=== PATIENT | female | born 1950 | race African-American/Black ===

== ENCOUNTER 2016-08-22 12:18 | Inpatient (IN) | payer OTHER, MEDICARE ==
[~2016-08-22] VITALS: Ht 180.3 cm; Wt 100.5 kg
[2016-08-27] MEDS ORDERED: FURO20TA PO (12:09)
[2016-08-27] MEDS ORDERED: CARV3.125 PO (12:09)
[2016-08-27] MEDS ORDERED: ATOR20TA15 PO (12:09)
[2016-08-27] MEDS ORDERED: SACU1TAB PO (12:09)
[2016-08-27] MEDS ORDERED: SPIR25TA PO (12:09)
[2016-08-27] MEDS ORDERED: NOVONP2 SQ (13:37)
[2016-08-27] MEDS ORDERED: NOVORP2 SQ (13:37)
[2016-08-27] MEDS ORDERED: ASPI1TAB69 PO (13:38)
[2016-08-29] VITALS (16 sets, daily range): BP systolic 104–134; BP diastolic 72–83; PULSE 69–97; RESP 16–18; TEMP 97.6–98.4; O2SAT 93–97
[2016-08-29] MEDS ORDERED: INSULIN HUMAN REGULAR 1,000 UNITS/10 ML VIAL SQ PRN (06:15)
[2016-08-29] MEDS ORDERED: POVIDONE IODINE 5% (ANTISEPSIS KIT) 4 APPLICATIONS EACH NARE PRN (06:15)
[2016-08-29] MEDS ORDERED: CHLORHEXIDINE GLUCONATE 2 % 1 PACK (2 CLOTHS) TOPICAL PRN (06:15)
[2016-08-29] MEDS ORDERED: SODIUM CHLORID 0.9% 500 ML IV PRN (06:15)
[2016-08-29] MEDS ORDERED: LACTATED RINGER'S 1000 ML IV PRN (06:15)
[2016-08-29] MEDS ORDERED: METOPROLOL TARTRATE 25 MG TAB PO PRN (06:15)
[2016-08-29] MEDS ORDERED: SUGAMMADEX SODIUM 200 MG/2 ML VIAL IV PUSH ONE ×4 (07:07→08:07)
[2016-08-29] MEDS ORDERED: BUPIVACAINE LIPOSO PF 1.3% INJ 20 ML, DEXAMETHASONE INJ 4 MG, MORPHINE INJ 10 MG in SOD... P-ARTICULR SCH (07:15)
[2016-08-29] MEDS ORDERED: BUPIVACAINE LIPOSOME PF 1.3% 20 ML VIAL INFIL ONE (09:18)
[2016-08-29] MEDS ORDERED: ACETAMINOPHEN 325 MG TAB PO PRN (09:30)
[2016-08-29] MEDS ORDERED: Post-op Orders (for Pharmacy) MISC OTHER ONE (09:30)
[2016-08-29] MEDS ORDERED: ACETAMINOPHEN/HYDROcodone 325 MG/5 MG TAB PO PRN (09:30)
[2016-08-29] MEDS ORDERED: MAGNESIUM HYDROXIDE SUSP 30 ML CUP PO PRN (09:30)
[2016-08-29] MEDS ORDERED: RESP: ALBUTEROL 2.5 MG/3 ML NEB (PRN) NEB (09:30)
[2016-08-29] MEDS ORDERED: ONDANSETRON HCL 4 MG/2 ML VIAL IV PUSH PRN (09:30)
[2016-08-29] MEDS: KETOROLAC TROMETHAMINE 30 MG/ML (IVP) VIAL IV PUSH SCH ×3 (09:30→21:02)
[2016-08-29] MEDS ORDERED: SODIUM CHLORIDE 0.9% FLUSH 5 ML FLUSH IV FLUSH PRN (09:30)
[2016-08-29] MEDS: RESP: ALBUTEROL 2.5 MG/3 ML NEB (SCH) NEB ×3 (10:00→20:43)
[2016-08-29] MEDS ORDERED: *morphine SULFATE 8 MG/ML PERIprocedure ONLY ONE ×2 (10:24→10:55)
--- NOTE | 2016-08-29 10:33 | RADRPT ---
EXAM DATE/TIME: 08/29/2016 10:09 [facility] COMPARISON: No previous studies available for comparison. INDICATIONS : Post thoracotomy. MEDICAL HISTORY : None. SURGICAL HISTORY : Pacemaker. ENCOUNTER: Initial ACUITY: 1 day PAIN SCORE: Non-responsive. LOCATION: Bilateral chest FINDINGS: A single view of the chest demonstrates cardiomegaly with bilateral perihilar edema. Left-sided defib rillator with 2 intact leads. No pneumothorax. Osseous structures are intact. CONCLUSION: Cardiomegaly with bilateral perihilar edema. No pneumothorax. Jonathan Lua MD on August 29, 2016 at 10:28 Board Certified Radiologist. This report was verified electronically.
[2016-08-29] MEDS ORDERED: DO NOT ADM ANY ANTICOAGULANT DRUGS PRN (11:00)
[2016-08-29] MEDS ORDERED: fentaNYL CITRATE 250 MCG/5 ML AMP IV ONE (12:00)
--- NOTE | 2016-08-29 12:07 | PD.OP ---
cc: Irish Lau MD; Marko Aviles MD Operative Report Date of Surgery: August 29, 2016 Preoperative Diagnosis: Postoperative Diagnosis: Procedure: 1. Left Lateral Mini-Thoracotomy 2. Epicardial Left Ventricular Lead Placement 3. Removal of Coronary Sinus Lead 4. Removal and Replacement of BiVentricular Pacemaker-AICD Generator Device 5. Intercostal nerve Block. . Surgeon: Irish Lau Optician Apprentice(s): Josias Medrano Operation and Findings: PREOPERATIVE DIAGNOSIS 1. Cardiomyopathy 2. CHF 3. Diabetes Mellitus 4. Malfunctioning Coronary Sinus Lead 5. Severe Left Ventricular Dysfunction POSTOPERATIVE DIAGNOSIS same PROCEDURES 1. Left Lateral Mini-Thoracotomy 2. Epicardial Left Ventricular Lead Placement 3. Removal of Coronary Sinus Lead 4. Removal and Replacement of BiVentricular Pacemaker-AICD Generator Device 5. Intercostal nerve Block. SURGEON Irish Lau MD CLOTH BOIL OFF MACHINE OPERATOR BRITTANY Bartholomew ANESTHESIA General Double-lumen endotracheal. STUDENT AFFAIRS DEAN LUZ MARIA Carias MD OPERATIVE TIME Please see record. COMPLICATIONS None. INDICATION FOR PROCEDURE The patient is a 66 yo with cardiomyopathy and recurrent CHF who is being brought to the operating room for epicardial left ventricular lead placement following percutaneous CS lead placement with diaphragmatic pacing. DESCRIPTION OF PROCEDURE The patient was brought to the operating suite and placed in supine position with the left chest slightly elevated. Following satisfactory induction of general endotracheal anesthesia, the patient was prepped and draped in the usual sterile fashion. A mini-thoracotomy (5 cm) was then performed in the 4th ICS anterior axillary line and carried down to the pleura. With gentle sharp and blunt dissection, the left pleural space was entered. The pericardium was identified. A pericardiotomy was performed anterior to the phrenic nerve, with care being taken to avoid direct or traction injury to the neurovascular bundle , and viable left ventricular muscle identified. A [employer] LV screw in lead was placed on the ventricular surface. Serial # [id number], REF # [id number]. Parameters measured were excellent with threshold of 0.6 V at 0.5 ms and impedance of 405 ohms. The previously closed infraclavicular incision was opened and the pocket irrigated with antibiotic solution. The malfunctioning coronary sinus lead was easily extracted with gentle traction and removed. The RA and RV leads were disconnected from the generator device it was replaced with a new device Serial # [id number]. The lead was tunneled and connected to the generator device as were the RA & RV leads. A #24-Beninese Aníbal drain was placed in the pleural space. Intercostal nerve block was performed at the level of the incision and 2 rib spaces above and below using Exparel solution. The intercostal space was reapproximated with a single #2 Vicryl stitch. Wounds were closed with 2-0, 3-0, and 4-0 Monocryl. The patient tolerated the procedure well and postoperatively went to recovery in stable condition. Irish Lau MD August 29, 2016 12:07
[2016-08-29] MEDS ORDERED: PHENYLEPH/NS 1000 MCG/10 ML SYR IV ONE (13:22)
[2016-08-29] MEDS ORDERED: PROPOFOL 200 MG/20 ML AMP IV ONE (13:22)
[2016-08-29] MEDS ORDERED: ACETAMINOPHEN 1000 MG/100 ML VIAL IV ONE (13:22)
[2016-08-29] MEDS ORDERED: LACTATED RINGER'S 1000 ML INJ 1,000 ML IV ONE (13:23)
[2016-08-29] MEDS ORDERED: ONDANSETRON HCL 4 MG/2 ML VIAL IV PUSH ONE (13:23)
[2016-08-29] MEDS: ACETAMINOPHEN 1000 MG/100 ML VIAL IV SCH ×2 (15:30→20:38)
[2016-08-29] MEDS ORDERED: ceFAZolin 1 GM PREMIX 50 ML IV SCH (17:00)
[2016-08-29] MEDS: ceFAZolin 1,000 MG/NS 100 ML IV SCH ×2 (17:51)
[2016-08-29] MEDS ORDERED: GLUCAGON 1 MG/ML VIAL OTHER PRN (18:00)
[2016-08-29] MEDS ORDERED: DEXTROSE 50% IN WATER 50 ML VIAL(D50) IV PUSH PRN (18:00)
[2016-08-29] MEDS: CARVEDILOL 3.125 MG TAB PO SCH (20:42)
[2016-08-29] MEDS: ATORVASTATIN 20 MG TAB PO SCH (20:42)
[2016-08-29] MEDS: PANTOPRAZOLE SOD 40 MG DELAYED RELEASE TAB PO SCH (20:43)
[2016-08-29] MEDS: SODIUM CHLORIDE 0.9% FLUSH 5 ML FLUSH IV FLUSH SCH (20:43)
[2016-08-29] MEDS: SACUBITRIL/VALSARTAN 24 MG-26 MG TAB PO SCH (21:20)
[2016-08-29] MEDS: DOCUSATE CALCIUM 240 MG CAP PO SCH (21:20)
[2016-08-29] MEDS: LOW DOSE INSULIN NOVOLOG SUPPLEMENTAL SCALE SQ SCH (21:24)
[2016-08-30] VITALS (33 sets, daily range): BP systolic 78–120; BP diastolic 42–71; PULSE 56–94; RESP 14–18; TEMP 97.8–98.2; O2SAT 92–96
[2016-08-30] MEDS: ceFAZolin 1,000 MG/NS 100 ML IV SCH ×4 (02:32→09:17)
[2016-08-30] MEDS: ACETAMINOPHEN 1000 MG/100 ML VIAL IV SCH (03:11)
[2016-08-30] MEDS: KETOROLAC TROMETHAMINE 30 MG/ML (IVP) VIAL IV PUSH SCH (03:11)
[2016-08-30] MEDS: RESP: ALBUTEROL 2.5 MG/3 ML NEB (SCH) NEB ×4 (04:42→21:48)
[2016-08-30] MEDS: LOW DOSE INSULIN NOVOLOG SUPPLEMENTAL SCALE SQ SCH ×4 (05:47→23:08)
[2016-08-30] MEDS: ACETAMINOPHEN/HYDROcodone 325 MG/5 MG TAB PO PRN ×3 (07:37→23:05)
[2016-08-30] MEDS: SODIUM CHLORIDE 0.9% FLUSH 5 ML FLUSH IV FLUSH SCH ×2 (09:00→21:00)
[2016-08-30] MEDS ORDERED: FUROSEMIDE 20 MG TAB PO SCH (09:00)
[2016-08-30] MEDS: SPIRONOLACTONE 25 MG TAB PO SCH (09:16)
[2016-08-30] MEDS: CARVEDILOL 3.125 MG TAB PO SCH ×2 (09:16→21:00)
[2016-08-30] MEDS: SACUBITRIL/VALSARTAN 24 MG-26 MG TAB PO SCH ×2 (09:16→21:00)
[2016-08-30] MEDS: ASPIRIN EC 81 MG TABEC PO SCH (09:16)
--- NOTE | 2016-08-30 15:14 | RADRPT ---
EXAM DATE/TIME: 08/30/2016 11:42 [facility] COMPARISON: CHEST SINGLE AP, August 29, 2016, 10:09. INDICATIONS : Chest tube removal. MEDICAL HISTORY : Myocardial infarction. SURGICAL HISTORY : Pacemaker. Thoracotomy ENCOUNTER: Subsequent ACUITY: 2 days PAIN SCORE: 0/10 LOCATION: Bilateral chest FINDINGS: Portable AP view of the chest demonstrates stable enlargement of the cardiac silhouette. Left chest w all cardiac pacing device/AICD remains present. Left chest tube has been removed. No pneumothorax is visualized. There is persistent retrocardiac opacity and mild streaky opacity at the right base. CONCLUSION: 1. Left chest tube has been removed. No pneumothorax is visualized. 2. Stable left basilar opacity. Alfred Coleman MD on August 30, 2016 at 15:10 Board Certified Radiologist. This report was verified electronically.
--- NOTE | 2016-08-30 15:27 | PD.CAR.PN ---
CVT Progress Note Subjective/Hospital Course: 66/ female hx of 1. Cardiomyopathy , CHF, Diabetes Mellitus, Malfunctioning Coronary Sinus Lead, Severe Left Ventricular Dysfunction surgery : Left Lateral Mini-Thoracotomy, Epicardial Left Ventricular Lead Placement, Removal of Coronary Sinus Lead, Removal and Replacement of BiVentricular Pacemaker-AICD Generator Device 08/29 08/30 chest tube removed without difficulty pt has low sat mid 80's when off 02 + walk test, will need to be dc on Home 02 eval labs today Objective: GENERAL: SKIN: Warm and dry.incision intact to left upper chest wall x 2 HEAD: Normocephalic. EYES: No scleral icterus. No injection or drainage. NECK: Supple, trachea midline. No JVD or lymphadenopathy. CARDIOVASCULAR: Regular rate and rhythm without murmurs, gallops, or rubs. pacer left upper chest wall RESPIRATORY: Breath sounds equal bilaterally. No accessory muscle use. GASTROINTESTINAL: Abdomen soft, non-tender, nondistended. MUSCULOSKELETAL: No cyanosis, or edema. BACK: Nontender without obvious deformity. No CVA tenderness. Vital Signs Date Time Temp Pulse Resp B/P Pulse Ox O2 Delivery O2 Flow Rate FiO2 08/30/16 14:36 68 08/30/16 13:01 81 08/30/16 12:56 83 08/30/16 12:52 82 16 93/43 93 08/30/16 11:48 93 Nasal Cannula 3.00 08/30/16 11:46 80 14 80/47 93 08/30/16 11:09 72 08/30/16 11:04 97.9 66 14 78/52 92 08/30/16 10:52 74 08/30/16 10:00 94 08/30/16 09:14 14 08/30/16 09:00 80 08/30/16 08:36 92 Nasal Cannula 2.00 08/30/16 08:00 80 08/30/16 07:44 98.2 79 14 120/69 96 08/30/16 07:15 97 Nasal Cannula 3.00 08/30/16 07:00 85 08/30/16 07:00 14 08/30/16 06:29 91 08/30/16 05:00 78 08/30/16 04:45 94 Nasal Cannula 2.00 08/30/16 04:00 90 08/30/16 03:20 94 Nasal Cannula 3.00 08/30/16 03:20 76 08/30/16 03:20 98.0 56 18 111/71 94 08/30/16 02:11 79 08/30/16 01:00 86 08/30/16 00:00 74 08/29/16 23:20 94 Nasal Cannula 3.00 08/29/16 23:20 98.0 69 16 110/75 94 08/29/16 23:00 72 08/29/16 22:00 74 08/29/16 21:00 82 08/29/16 20:43 96 Nasal Cannula 2.00 08/29/16 20:15 90 08/29/16 19:20 98.3 85 18 109/72 95 08/29/16 19:20 79 08/29/16 19:20 95 Nasal Cannula 3.00 08/29/16 18:00 76 08/29/16 17:00 90 08/29/16 16:05 93 Nasal Cannula 2.00 08/29/16 16:00 80 08/29/16 15:41 95 Nasal Cannula 2.00 08/29/16 15:40 97.6 85 18 112/79 95 Telemetry: v paced (1) CHF (congestive heart failure), NYHA class III Plan: on entresto, spironolactone, lasix (2) Hypoxemia Plan: will need home 02 (3) s/p epicardial lead placement Plan: chest tube dc without difficulty 02 sat marginal / did not pass home walk test will check labs, BP low this am now resolved eval for further diuretics Nicole Avendaño August 30, 2016 15:27
[2016-08-30] MEDS ORDERED: OXYGENTANK NAS.CANULA (15:28)
--- NOTE | 2016-08-30 15:34 | HHI.FF ---
Face to Face Verification Diagnosis: (1) CHF (congestive heart failure), NYHA class III (2) s/p epicardial lead placement (3) Hypoxemia Home Health Nursing Order: Signs/symptoms of disease process Oxygen administration education Wound care and dressing changes Nursing assessment with vital signs Instructions: Incentive spirometry Q1 hr x 10, while awake, also use acapella device hourly whole awake chest wall Precautions: NO pushing or pulling, ( pt must use chest pillow to support chest with all activities and with coughing Daily incision care: ok to shower daily, no tub bath. Wash all incisions with liquid dial soap, clean wash cloth to each site, rinse and pat dry. Observe for any signs of infection, such as drainage which is dark yellow, gar, green or foul smelling. Immediately report to the surgeon any drainage from the chest incision, or legs, and for any abnormal drainage from the chest tube sites. Notify surgeon if any temp >101.5 degrees F. When specialty dressing removed/ or if you do not have one, continue to shower daily as above, then rinse and pat incision dry and paint with betadine daily x 5 days. Allow steri strips to fall off if you have any. Avoid lotions, creams, salves, oils, etc. for the first month F/U appointment: as per MO instructions: PCP in 2 weeks, CV surgeon 2 weeks, Practicing Dermatologist 3-4 weeks For any questions regarding incisions/ dressing / meds / post op care or above Symptoms, Saturday 8am-5pm Heart & Vascular Surgery Office ( Dr. Lau & Dr. Shipman), After Hours / Nights (5pm -8am) Weekends and Holidays Please call [facility]) Charge Nurse I have seen patient Kaylee Shah on 08/30/16. My clinical findings support the need for the requested home health care services because: Patient has SOB I certify that my clinical findings support that this patient is homebound because: Post-op weakness (home 02 to keep sat > 92%) Nicole Avendaño August 30, 2016 15:34
[2016-08-30 17:20] LABS: HEMATOCRIT 36.7 % (35.0-46.0); MEAN CORPUSCULAR HEMOGLOBIN 26.9 PG (27.0-34.0); MEAN CORPUSCULAR HGB CONC 31.3 % (32.0-36.0); PLATELET COUNT 130 TH/MM3 (150-450); RED BLOOD COUNT 4.26 MIL/MM3 (4.00-5.30); RED CELL DISTRIBUTION WIDTH 16.9 % (11.6-17.2); REVIEW FLAG FINAL; WHITE BLOOD COUNT 8.8 TH/MM3 (4.0-11.0)
[2016-08-30 17:36] LABS: BICARBONATE 28.7 MEQ/L (21.0-32.0); POTASSIUM 4.7 MEQ/L (3.5-5.1)
[2016-08-30] MEDS ORDERED: SODIUM CHLOR 0.9% 250 ML INJ 250 ML IV ONE (20:45)
[2016-08-30] MEDS: DOCUSATE CALCIUM 240 MG CAP PO SCH (23:05)
[2016-08-30] MEDS: ATORVASTATIN 20 MG TAB PO SCH (23:05)
[2016-08-30] MEDS: PANTOPRAZOLE SOD 40 MG DELAYED RELEASE TAB PO SCH (23:06)
[2016-08-31] VITALS (25 sets, daily range): BP systolic 84–136; BP diastolic 52–100; PULSE 63–95; RESP 16–20; TEMP 97.4–98.5; O2SAT 93–97
[2016-08-31] MEDS: RESP: ALBUTEROL 2.5 MG/3 ML NEB (SCH) NEB ×4 (02:55→21:26)
[2016-08-31] MEDS: LOW DOSE INSULIN NOVOLOG SUPPLEMENTAL SCALE SQ SCH ×4 (06:16→21:00)
[2016-08-31] MEDS: ACETAMINOPHEN/HYDROcodone 325 MG/5 MG TAB PO PRN ×3 (06:22→16:24)
[2016-08-31 06:34] LABS: BASOPHIL % 0.5 % (0.0-2.0); EOSINOPHIL % 0.5 % (0.0-4.0); HEMATOCRIT 33.9 % (35.0-46.0); HEMO FLAGS DIFF FINAL; LYMPHOCYTE # 0.7 TH/MM3 (1.0-4.8); MEAN CELL VOLUME 84.6 FL (80.0-100.0); MEAN CORPUSCULAR HEMOGLOBIN 27.8 PG (27.0-34.0); MEAN CORPUSCULAR HGB CONC 32.9 % (32.0-36.0); MONO % 13.8 % (0.0-8.0); NEUT % 74.2 % (16.0-70.0); PLATELET COUNT 126 TH/MM3 (150-450); RED BLOOD COUNT 4.01 MIL/MM3 (4.00-5.30); RED CELL DISTRIBUTION WIDTH 17.1 % (11.6-17.2); WHITE BLOOD COUNT 6.7 TH/MM3 (4.0-11.0)
--- NOTE | 2016-08-31 07:16 | RADRPT ---
EXAM DATE/TIME: 08/31/2016 05:20 [facility] COMPARISON: CHEST SINGLE AP, August 30, 2016, 11:42. INDICATIONS : Shortness of breath. MEDICAL HISTORY : Myocardial infarction. SURGICAL HISTORY : Pacemaker. Thoracotomy. ENCOUNTER: Subsequent ACUITY: 3 days PAIN SCORE: Non-responsive. LOCATION: chest FINDINGS: Right base consolidation and small effusion worsening. Mild consolidation probably developing at the left lung base as well. I don't see a pneumothorax. Mild to moderate cardiomegaly is unchanged. Cardiac pacer/defibrillator again noted. CONCLUSION: Worsening bibasilar consolidation and effusions, could be related to failure. Alfred Crain MD on August 31, 2016 at 7:14 Board Certified Radiologist. This report was verified electronically.
[2016-08-31 07:35] LABS: BICARBONATE 26.8 MEQ/L (21.0-32.0); POTASSIUM 4.8 MEQ/L (3.5-5.1)
[2016-08-31] MEDS: SODIUM CHLORIDE 0.9% FLUSH 5 ML FLUSH IV FLUSH SCH ×2 (09:00→21:00)
[2016-08-31] MEDS: ASPIRIN EC 81 MG TABEC PO SCH (09:14)
--- NOTE | 2016-08-31 11:22 | ECHLIM ---
Study Study Date:08/31/2016 STUDY CONCLUSIONS SUMMARY - Procedure narrative: Transthoracic echocardiography. Image quality was poor. Scanning was performed from the parasternal, apical, and subcostal acoustic windows. - Left ventricle: The cavity size was moderately dilated. Wall thickness was normal. Systolic function was severely reduced. The estimated ejection fraction was in the range of 20% to 25%. Diffuse hypokinesis. - Left atrium: The atrium was mildly dilated. - Right ventricle: Poorly visualized. - Right atrium: The atrium was mildly dilated. Pacer wire or catheter noted in right atrium. - Atrial septum: A patent foramen ovale cannot be excluded. - Tricuspid valve: Mild regurgitation. - Pulmonary arteries: PA peak pressure: 37mm Hg (S). If LV function is below 40, please consider prescribing an ACEI or ARB or document rationale for non-use. PROCEDURE DATA STUDY STATUS: Elective. Procedure: Transthoracic echocardiography. Image quality was poor. Scanning was performed from the parasternal, apical, and subcostal acoustic windows. Study completion: The patient tolerated the procedure well. Transthoracic echocardiography. M-mode, complete 2D, complete spectral Doppler, and color Doppler. Height: Height: 71in. Weight: Weight: 250.5lb. Body mass index: BMI: 35kg/m^2. Body surface area: BSA: 2.32m^2. Patient status: Inpatient. CARDIAC ANATOMY LEFT VENTRICLE: The cavity size was moderately dilated. Wall thickness was normal. Systolic function was severely reduced. The estimated ejection fraction was in the range of 20% to 25%. Diffuse hypokinesis. AORTIC VALVE: Trileaflet; normal thickness leaflets. Doppler: Transvalvular velocity was within the normal range. There was no stenosis. No regurgitation. AORTA: Aortic root: The aortic root was normal in size. MITRAL VALVE: Structurally normal valve. Doppler: Transvalvular velocity was within the normal range. There was no evidence for stenosis. No regurgitation. LEFT ATRIUM: The atrium was mildly dilated. ATRIAL SEPTUM: A patent foramen ovale cannot be excluded. RIGHT VENTRICLE: Poorly visualized. PULMONIC VALVE: Doppler: Transvalvular velocity was within the normal range. There was no evidence for stenosis. No regurgitation. TRICUSPID VALVE: Structurally normal valve. Doppler: Transvalvular velocity was within the normal range. Mild regurgitation. PULMONARY ARTERY: The main pulmonary artery was normal-sized. Systolic pressure was within the normal range. RIGHT ATRIUM: The atrium was mildly dilated. Pacer wire or catheter noted in right atrium. PERICARDIUM: There was no pericardial effusion. SYSTEMIC VEINS: Inferior vena cava: The vessel was normal in size. Patient weight: 250.5lb _Ejection fraction:_ 65-75% _Fractional shortening:_ 32% up to 5Kg 5-11.5Kg 11.6-22.9Kg 23-45Kg 45-57Kg Aortic Root 7-13 <17 13-22 17-27 17-27 LA diam 6-13 <23 24-38 33-47 37-40 RVID 10-17 7-15 7-15 7-18 8-17 LVIDd 12-22 <32 24-38 33-47 37-40 LVPW 2-4 3-6 5-7 6-8 7-8 IVS 2-4 3-6 5-7 6-8 7-8 DOPPLER MEASUREMENTS ADULT NORMAL Main pulmonary artery Pressure, S *37 mm Hg =30 Tricuspid valve Regurgitant peak velocity 258 cm/s Peak RV-RA gradient, S 27 mm Hg Maximal regurgitant velocity 258 cm/s Systemic veins Estimated CVP 10 mm Hg Right ventricle RV pressure, S *37 mm Hg <30 LEGEND: Mean values are shown as u=mean value. Asterisk (*) cifuentes values outside specified normal range. Prepared and signed by Phillip Rondon [id number]
--- NOTE | 2016-08-31 12:09 | PD.CAR.PN ---
CVT Progress Note Subjective/Hospital Course: 66/ female hx of 1. Cardiomyopathy , CHF, Diabetes Mellitus, Malfunctioning Coronary Sinus Lead, Severe Left Ventricular Dysfunction surgery : Left Lateral Mini-Thoracotomy, Epicardial Left Ventricular Lead Placement, Removal of Coronary Sinus Lead, Removal and Replacement of BiVentricular Pacemaker-AICD Generator Device 08/29 08/30 chest tube removed without difficulty pt has low sat mid 80's when off 02 + walk test, will need to be dc on Home 02 eval labs today 08/31 pt had episode of hypotension again this am all meds held , bolused with 250cc/ NS worsening renal indices / will need nephro consult also re-consult Dr Aviles CXR and BMP noted, volume overload / HX CHF needs aggressive pulm toileting / diuresis ( will leave to nephro/ non - oliguric ) Objective: GENERAL: SKIN: Warm and dry. Bi V ICD left upper chest wall insitu, incision intact left upper chest wall and below left breast HEAD: Normocephalic. EYES: No scleral icterus. No injection or drainage. NECK: Supple, trachea midline. No JVD or lymphadenopathy. CARDIOVASCULAR: Regular rate and rhythm without murmurs, gallops, or rubs. + 1 lower ext edema RESPIRATORY: bibasilar crackles , R>L No accessory muscle use. GASTROINTESTINAL: Abdomen soft, non-tender, nondistended. MUSCULOSKELETAL: No cyanosis, BACK: Nontender without obvious deformity. No CVA tenderness. Vital Signs Date Time Temp Pulse Resp B/P Pulse Ox O2 Delivery O2 Flow Rate FiO2 08/31/16 11:11 98.4 84 18 92/62 95 08/31/16 11:11 95 Nasal Cannula 2.00 08/31/16 09:44 95 Nasal Cannula 2.00 08/31/16 08:48 94 Nasal Cannula 2.00 08/31/16 08:48 98.3 84 18 105/60 94 08/31/16 06:00 72 08/31/16 05:00 90/64 08/31/16 05:00 86 08/31/16 04:00 77 08/31/16 03:30 97 Nasal Cannula 2.00 08/31/16 03:30 98.5 83 16 84/52 93 08/31/16 03:00 73 08/31/16 02:55 93 Nasal Cannula 2.00 08/31/16 02:00 67 08/31/16 01:00 63 08/31/16 00:00 74 08/30/16 23:00 81 08/30/16 23:00 97.8 82 18 88/52 93 08/30/16 23:00 93 Nasal Cannula 2.00 08/30/16 22:00 76 08/30/16 21:51 92 Nasal Cannula 2.00 08/30/16 21:00 74 08/30/16 20:00 80 08/30/16 19:30 95 Nasal Cannula 2.00 08/30/16 19:30 98.2 85 18 92/60 95 08/30/16 19:00 81 08/30/16 18:43 78 08/30/16 18:42 72 08/30/16 17:45 16 08/30/16 16:13 78 08/30/16 16:13 98.0 78 14 94/60 94 08/30/16 15:15 93 Nasal Cannula 2.00 08/30/16 15:15 63 08/30/16 14:36 68 08/30/16 13:01 81 08/30/16 12:56 83 08/30/16 12:52 82 16 93/43 93 Labs: Laboratory Tests Test 08/31/16 06:21 White Blood Count 6.7 TH/MM3 (4.0-11.0) Red Blood Count 4.01 MIL/MM3 (4.00-5.30) Hemoglobin 11.2 GM/DL (11.6-15.3) Hematocrit 33.9 % (35.0-46.0) Mean Corpuscular Volume 84.6 FL (80.0-100.0) Mean Corpuscular Hemoglobin 27.8 PG (27.0-34.0) Mean Corpuscular Hemoglobin 32.9 % Concent (32.0-36.0) Red Cell Distribution Width 17.1 % (11.6-17.2) Platelet Count 126 TH/MM3 (150-450) Mean Platelet Volume 9.1 FL (7.0-11.0) Neutrophils (%) (Auto) 74.2 % (16.0-70.0) Lymphocytes (%) (Auto) 11.0 % (9.0-44.0) Monocytes (%) (Auto) 13.8 % (0.0-8.0) Eosinophils (%) (Auto) 0.5 % (0.0-4.0) Basophils (%) (Auto) 0.5 % (0.0-2.0) Neutrophils # (Auto) 5.0 TH/MM3 (1.8-7.7) Lymphocytes # (Auto) 0.7 TH/MM3 (1.0-4.8) Monocytes # (Auto) 0.9 TH/MM3 (0-0.9) Eosinophils # (Auto) 0.0 TH/MM3 (0-0.4) Basophils # (Auto) 0.0 TH/MM3 (0-0.2) CBC Comment DIFF FINAL Differential Comment Sodium Level 138 MEQ/L (136-145) Potassium Level 4.8 MEQ/L (3.5-5.1) Chloride Level 104 MEQ/L (98-107) Carbon Dioxide Level 26.8 MEQ/L (21.0-32.0) Anion Gap 7 MEQ/L (5-15) Blood Urea Nitrogen 40 MG/DL (7-18) Creatinine 2.89 MG/DL (0.50-1.00) Estimat Glomerular Filtration 20 ML/MIN (>89) Rate Random Glucose 130 MG/DL (74-106) Calcium Level 8.3 MG/DL (8.5-10.1) Result Diagram: 08/31/1662008/31/16620 (1) CHF (congestive heart failure), NYHA class III Plan: all meds held 2/2 hypotension s/p fluid bolus on entresto, spironolactone, lasix (2) Hypoxemia Plan: will need home 02 add ezpap acapella (3) s/p epicardial lead placement Plan: chest tube dc without difficulty 02 sat marginal / did not pass home walk test will recheck labs, BP low this am / improved after fluid bolus 250cc/ will need to caution further fluid with low EF 25% (4) Acute kidney injury Plan: consult placed with nephrology hold BP Nicole Sanchez August 31, 2016 12:09
[2016-08-31] MEDS ORDERED: BUMETANIDE INJ 100 ML IV SCH (12:45)
--- NOTE | 2016-08-31 12:47 | RADRPT ---
EXAM DATE/TIME: 08/31/2016 12:10 [facility] COMPARISON: CHEST SINGLE AP, August 31, 2016, 5:20. INDICATIONS : No chest complaints. Follow up on consolidation. MEDICAL HISTORY : Hypertension. Myocardial infarction. SURGICAL HISTORY : Pacemaker. ENCOUNTER: Subsequent ACUITY: 2 days PAIN SCORE: 0/10 LOCATION: Bilateral chest FINDINGS: A single view of the chest demonstrates cardiomegaly with bibasilar densities and small pleural effus ions. Left-sided defibrillator unchanged. Osseous structures are intact. CONCLUSION: Cardiomegaly with improving bibasilar densities. Jonathan Lua MD on August 31, 2016 at 12:45 Board Certified Radiologist. This report was verified electronically.
--- NOTE | 2016-08-31 15:25 | PD.CONS ---
[facility] Service Nephrology Consult Requested By Kateryna Reason for Consult Acute Renal Failure Primary Care Physician Crystal Calhoun M.D. History of Present Illness This is a 66 y/o AAF patient who was admitted on 08/29 for replacement of her AICD (Left Lateral Mini-Thoracotomy, Epicardial Left Ventricular Lead Placement , Removal of Coronary Sinus Lead, Removal and Replacement of Bi-Ventricular Pacemaker-AICD Generator Device). PMH of HTN, DM II, CHF with EF of 20-25%. Postoperatively her creatinine was 2.6, that increased to 2.89 today. Preoperatively her creatinine was 1.24 on 08/28. She denies history of renal impairment or seeing a wool classer in the past. There is no UA available for analysis, but her potassium is normal. There are no recent labs for comparison, but in 2009 her creatinine measured 1.02. Overnight last night (08/30) she became hypotensive with readings recorded at 70/50. She is non oliguric without a cui. We were asked to consult on this patient for management of her renal dysfunction. She was on Entresto, Lasix, and Aldactone, all of which have been held. She is not in distress, no edema is observed, and she is a full code. Of note she was given 3 doses of Toradol on 08/30. (Cyn Denton) Review of Systems Constitutional: COMPLAINS OF: Fatigue Respiratory: DENIES: Shortness of breath Cardiovascular: DENIES: Chest pain, Lower Extremity Edema Gastrointestinal: DENIES: Abdominal pain (Cyn Denton) Past Family Social History Allergies: Coded Allergies: No Known Allergies (Verified , 08/27/16) Past Medical History DM II HTN CHF, EF 20-25% systolic dysfunction Cardiomyopathy Past Surgical History cesarian Left Lateral Mini-Thoracotomy, Epicardial Left Ventricular Lead Placement, Removal of Coronary Sinus Lead, Removal and Replacement of BiVentricular Pacemaker-AICD Generator Device on 08/29 Reported Medications she is unable to list medications Active Ordered Medications Current Medications Medications (Trade) Dose Ordered Sig/Ava Route Start Time Stop Time Status Last Admin (NS Flush) 2 ml BID IV FLUSH 08/29/16 21:00 08/31/16 09:00 (NS Flush) 2 ml UNSCH PRN IV FLUSH 08/29/16 09:30 (Protonix) 40 mg HS PO 08/29/16 21:00 08/30/16 23:06 (Zofran Inj) 4 mg Q6H PRN IV PUSH 08/29/16 09:30 (Surfak) 240 mg HS PO 08/29/16 21:00 08/30/16 23:05 (Milk Of Magnesia Liq) 30 ml DAILY PRN PO 08/29/16 09:30 (Tylenol) 650 mg Q4H PRN PO 08/29/16 09:30 ([place] 5-325 Mg) 1 tab Q3H PRN PO 08/29/16 09:30 08/31/16 09:16 (Ecotrin Ec) 81 mg DAILY PO 08/30/16 09:00 08/31/16 09:14 (Lipitor) 20 mg HS PO 08/29/16 21:00 08/30/16 23:05 (Coreg) 3.125 mg BID PO 08/29/16 21:00 Hold 08/30/16 09:16 (Lasix) 20 mg DAILY PO 08/30/16 09:00 Hold 08/30/16 09:16 (Aldactone) 25 mg DAILY PO 08/30/16 09:00 Hold 08/30/16 09:16 (Entresto 24-26 Mg) 1 tab BID PO 08/29/16 21:00 Hold 08/30/16 09:16 (D50w (Vial) Inj) 25 ml UNSCH PRN IV PUSH 08/29/16 18:00 (Glucagon Inj) 1 mg UNSCH PRN OTHER 08/29/16 18:00 Family History No hx of renal disorders all of her sons have DM II Social History quit smoking 3 months ago no ETOH use single, lives alone functionally independent unemployed full code (Cyn Denton) Physical Exam Vital Signs Vital Signs Date Time Temp Pulse Resp B/P Pulse Ox O2 Delivery O2 Flow Rate FiO2 08/31/16 13:00 79 08/31/16 12:00 80 08/31/16 11:11 98.4 84 18 92/62 95 08/31/16 11:11 95 Nasal Cannula 2.00 08/31/16 11:00 77 08/31/16 10:00 82 08/31/16 09:44 95 Nasal Cannula 2.00 08/31/16 09:00 88 08/31/16 08:48 94 Nasal Cannula 2.00 08/31/16 08:48 98.3 84 18 105/60 94 08/31/16 08:00 68 08/31/16 07:00 70 08/31/16 06:00 72 08/31/16 05:00 90/64 08/31/16 05:00 86 08/31/16 04:00 77 08/31/16 03:30 97 Nasal Cannula 2.00 08/31/16 03:30 98.5 83 16 84/52 93 08/31/16 03:00 73 08/31/16 02:55 93 Nasal Cannula 2.00 08/31/16 02:00 67 08/31/16 01:00 63 08/31/16 00:00 74 08/30/16 23:00 81 08/30/16 23:00 97.8 82 18 88/52 93 08/30/16 23:00 93 Nasal Cannula 2.00 08/30/16 22:00 76 08/30/16 21:51 92 Nasal Cannula 2.00 08/30/16 21:00 74 08/30/16 20:00 80 08/30/16 19:30 95 Nasal Cannula 2.00 08/30/16 19:30 98.2 85 18 92/60 95 08/30/16 19:00 81 08/30/16 18:43 78 08/30/16 18:42 72 08/30/16 17:45 16 08/30/16 16:13 78 08/30/16 16:13 98.0 78 14 94/60 94 Physical Exam Elderly AAF who appears younger than stated age, awake/alert and oriented without neuro deficit S1/S2, regular rate, no rubs lungs: diminished in bases, trace scattered rales; bandage left lower rib border abdomen: obese, soft, non tender Ext: no edema no CVA tenderness Laboratory Laboratory Tests Test 08/30/16 08/31/16 17:10 06:21 White Blood Count 8.8 6.7 Red Blood Count 4.26 4.01 Hemoglobin 11.5 11.2 Hematocrit 36.7 33.9 Mean Corpuscular Volume 86.0 84.6 Mean Corpuscular Hemoglobin 26.9 27.8 Mean Corpuscular Hemoglobin 31.3 32.9 Concent Red Cell Distribution Width 16.9 17.1 Platelet Count 130 126 Mean Platelet Volume 8.9 9.1 Sodium Level 137 138 Potassium Level 4.7 4.8 Chloride Level 102 104 Carbon Dioxide Level 28.7 26.8 Anion Gap 6 7 Blood Urea Nitrogen 34 40 Creatinine 2.62 2.89 Estimat Glomerular Filtration 22 20 Rate Random Glucose 174 130 Calcium Level 8.6 8.3 B-Type Natriuretic Peptide 919 Neutrophils (%) (Auto) 74.2 Lymphocytes (%) (Auto) 11.0 Monocytes (%) (Auto) 13.8 Eosinophils (%) (Auto) 0.5 Basophils (%) (Auto) 0.5 Neutrophils # (Auto) 5.0 Lymphocytes # (Auto) 0.7 Monocytes # (Auto) 0.9 Eosinophils # (Auto) 0.0 Basophils # (Auto) 0.0 CBC Comment DIFF FINAL Differential Comment Date/Time Procedure Status Source Growth 08/29/16 08:52 Gram Stain - Final Resulted Wound Other 08/29/16 08:52 Wound Culture - Preliminary Resulted Wound Other NO GROWTH IN 48 HOURS. (Cyn Denton) Result Diagram: 08/31/16 0621 08/31/16 0621 Imaging Last 72 hours Impressions Chest X-Ray 08/31/16 0600 Signed Impressions: Service Date/Time: Wednesday, August 31, 2016 05:20 - CONCLUSION: Worsening bibasilar consolidation and effusions, could be related to failure. Alfred Crain MD Chest X-Ray 08/31/16 0000 Signed Impressions: Service Date/Time: Wednesday, August 31, 2016 12:10 - CONCLUSION: Cardiomegaly with improving bibasilar densities. Jonathan Lua MD Chest X-Ray 08/30/16 1200 Signed Impressions: Service Date/Time: August 11:42 - CONCLUSION: 1. Left chest tube has been removed. No pneumothorax is visualized. 2. Stable left basilar opacity. Alfred Coleman MD Chest X-Ray 08/29/16 0000 Signed Impressions: Service Date/Time: Monday, August 29, 2016 10:09 - CONCLUSION: Cardiomegaly with bilateral perihilar edema. No pneumothorax. Jonathan Lua MD (Cyn Denton) Assessment and Plan Problem List: (1) Acute kidney injury Plan: In 2009 her creatinine was 1.02; Pre operatively her creatinine was 1.24 , GFR 52 (CKD 3) May have underlying CKD JYOTI thought to be due to hypotension and decreased renal perfusion, may have progressed to ATN no acute electrolyte issues at this time we agree with holding Entresto and diuretics follow renal function, monitor urine production she was given IVF for hypotension, but BP has improved, maintain adequate MAP hold antihypertensives avoid excess IVF administration obtain UA for analysis of protein avoid nephrotoxic medications, she was given toradol x 3 doses repeat labs in the morning (2) CHF (congestive heart failure), NYHA class III Plan: EF 20-25% s/p AICD replacement monitor fluid volume status diuretics are on hold, cardiology is following (3) s/p epicardial lead placement Plan: cardiology is managing post operatively chest tubes have been removed (4) DM (diabetes mellitus) Plan: insulin as needed (Cyn Denton) Assessment and Plan patient was seen and examined. Patient has developed postoperative JYOTI, likely due to hypotension, renal hypoperfusion, may have developed ATN. Agree with stopping Entresto and antihypertensives. Monitor. Avoid nephrotoxic agents. Obtain UA, renal US. (Sourav Marte MD) Cyn Denton August 31, 2016 15:25 Sourav Marte MD August 31, 2016 16:54
--- NOTE | 2016-08-31 17:35 | MB ---
cc: OMA HO M.D. DATE OF CONSULTATION 08/31/16 Electrophysiology consult. REASON FOR CONSULTATION Heart failure. MEDICATIONS Mrs. Shah is a 66-year-old -[place] female with congestive heart failure, cardiomyopathy was IV admitted by Dr. Lau for a left ventricular epicardial lead placement. During hospitalization developed shortness of breath. The patient gained at least 8-9 pounds. There is some bilateral crackles. I was consulted for evaluation and management. The chart was reviewed. The patient was evaluated. ALLERGIES None reported. SOCIAL HISTORY Negative for smoking and drinking. FAMILY HISTORY Noncontributory to her current medical condition. MEDICATIONS She is on: 1. aspirin. 2. Atorvastatin. 3. Coreg. 4. Lasix. 5. Aldactone. 6. Entresto. REVIEW OF SYSTEMS She refers shortness of breath but no chest pain or chest discomfort. PHYSICAL EXAMINATION GENERAL: Alert, fully oriented. VITAL SIGNS: Her blood pressure on evaluation is 92/62, pulse 84, respiratory rate 20. LUNGS: Bilateral crackles. CARDIOVASCULAR: S1-S2 regular. ABDOMEN: Soft. No mass. EXTREMITIES: With minimal edema. CARDIOLOGY STUDIES Electrocardiogram pacing. LABORATORY DATA Hemoglobin 11.2, white blood cells 6.7, potassium is 4.8, creatinine 2.89. BNP is 919. ASSESSMENT AND RECOMMENDATIONS Mrs. Shah has all the characteristics of heart failure. BNP is slightly elevated. Apparently, she cannot manage fluid. She gained pounds. Renal function is worse post procedure. Medication needs to be a reevaluated. She is on Aldactone, Lasix, Coreg and Entresto. Systolic blood pressure is adequate around 92. At this point my recommendation is initiate Milrinone. I discussed the case extensively with Dr. Angel Choudhury. We are going to admit the patient to [facility] ICU. Milrinone is going to be initiated and subsequently will reintroduce a beta-samantha and Entresto. The case also discussed with the patient. My partner, Dr. Odom, will monitor the patient during the long weekend. Oma Ho MD HS/EO /4:51 PM /5:14 PM
[2016-08-31] MEDS ORDERED: MIDAZOLAM HCL 5 MG/ML VIAL (1 ML) ONE (18:38)
[2016-08-31] MEDS ORDERED: BUMETANIDE INJ 1 MG/4 ML VIAL IV PUSH ONE (19:45)
[2016-08-31] MEDS ORDERED: MAGNESIUM SULFATE INJ 2 GM in SODIUM CHLORIDE 0.9% INJ 96 ML IV PRN (20:00)
[2016-08-31] MEDS ORDERED: MAGNESIUM OXIDE 400 MG TAB PO PRN (20:00)
[2016-08-31] MEDS ORDERED: POTASSIUM CHLOR 20 MEQ PREMIX 100 ML IV PRN (20:00)
[2016-08-31] MEDS ORDERED: POTASSIUM CHLOR 40 MEQ PREMIX 100 ML IV-CENTRAL PRN ×2 (20:00)
[2016-08-31] MEDS ORDERED: INFO FOR PHARMACY/READ COMMENT SCH (20:00)
[2016-08-31] MEDS ORDERED: MAGNESIUM SULFATE INJ 4 GM in SODIUM CHLORIDE 0.9% INJ 92 ML IV PRN (20:00)
--- NOTE | 2016-08-31 20:23 | PD.CONS ---
[facility] Service Critical Care Medicine Consult Requested By Dr. Aviles Reason for Consult volume overload and worsening CHF exacerbation not responsive to current medical management Primary Care Physician Crystal Calhoun M.D. History of Present Illness This is a 66-year-old female with a history of severe systolic heart failure, cardiomyopathy, who was admitted electively on 08/29 for placement of an epicardial pacing lead for resynchronization therapy by Dr. Lau. Postoperatively, the patient has developed worsening shortness of breath and has gained almost 10 pounds over the last 3 days, despite aggressive diuresis. Also during this time, her creatinine has risen from a baseline of approximately 1.2 up to 2.9 this morning. I talked with Dr. Aviles today who would like a higher level of care and increased cardiac monitoring to assist in optimizing the patient, since she is clearly failing her current CHF regimen, and is decompensating despite her attempts at optimization. I talked with the patient and she endorses worsening shortness of breath, particularly orthopnea. denies chest pain. denies any other related symptoms. I reviewed her most recent echocardiogram from 08/31 which demonstrates an EF of 20-25%, what appears to my read to be moderate RV dysfunction, severe LV dysfunction. No clinical significant valvular lesions. Review of Systems Constitutional: COMPLAINS OF: Weight gain, DENIES: Fatigue, Chills, Dizziness Respiratory: COMPLAINS OF: Shortness of breath, DENIES: Cough, Snoring, Wheezing, Sputum production Cardiovascular: COMPLAINS OF: Lower Extremity Edema, Orthopnea, DENIES: Chest pain, Palpitations, Syncope, Dyspnea on Exertion, PND Gastrointestinal: DENIES: Abdominal pain, Constipation, Diarrhea, Nausea, Vomiting Past Family Social History Allergies: Coded Allergies: No Known Allergies (Verified , 08/27/16) Past Medical History Diabetes Hypertension Cardiomyopathy, EF of 20% Past Surgical History ICD placed Reported Medications Aspirin Atorvastatin Coreg Lasix Aldactone Entresto Active Ordered Medications See MAR Family History Reviewed with the patient and found to be noncontributory to her acute illness Social History Doesn't smoke Physical Exam Vital Signs Vital Signs Date Time Temp Pulse Resp B/P Pulse Ox O2 Delivery O2 Flow Rate FiO2 08/31/16 17:48 79 08/31/16 16:58 97 Nasal Cannula 2.00 08/31/16 16:58 97.4 89 18 108/71 97 08/31/16 13:00 79 08/31/16 12:00 80 08/31/16 11:11 98.4 84 18 92/62 95 08/31/16 11:11 95 Nasal Cannula 2.00 08/31/16 11:00 77 08/31/16 10:00 82 08/31/16 09:44 95 Nasal Cannula 2.00 08/31/16 09:00 88 08/31/16 08:48 94 Nasal Cannula 2.00 08/31/16 08:48 98.3 84 18 105/60 94 08/31/16 08:00 68 08/31/16 07:00 70 08/31/16 06:00 72 08/31/16 05:00 90/64 08/31/16 05:00 86 08/31/16 04:00 77 08/31/16 03:30 97 Nasal Cannula 2.00 08/31/16 03:30 98.5 83 16 84/52 93 08/31/16 03:00 73 08/31/16 02:55 93 Nasal Cannula 2.00 08/31/16 02:00 67 08/31/16 01:00 63 08/31/16 00:00 74 08/30/16 23:00 81 08/30/16 23:00 97.8 82 18 88/52 93 08/30/16 23:00 93 Nasal Cannula 2.00 08/30/16 22:00 76 08/30/16 21:51 92 Nasal Cannula 2.00 08/30/16 21:00 74 08/30/16 20:00 80 Physical Exam GENERAL: Middle-aged female, sitting in bed, alert and oriented HEENT: Cephalic. Atraumatic. Mucous membranes are moist. Pupils equal, round , reactive, conjugate NECK: Trachea is midline. There is JVD up above the level of the mandible. CHEST: Equal chest rise. Bibasilar crackles. CARDIOVASCULAR: Normal rate, regular rhythm. Paced rhythm by telemetry. ABDOMEN: Soft, obese, nontender, nondistended. No guarding. MUSCULOSKELETAL: Distal pulses 2+. 2+ pitting edema of the lower extremities NEUROLOGICAL: RASS 0. Follows commands in all 4 extremity's. No gross focal sensory or motor deficits Laboratory Laboratory Tests Test 08/31/16 06:21 White Blood Count 6.7 Red Blood Count 4.01 Hemoglobin 11.2 Hematocrit 33.9 Mean Corpuscular Volume 84.6 Mean Corpuscular Hemoglobin 27.8 Mean Corpuscular Hemoglobin 32.9 Concent Red Cell Distribution Width 17.1 Platelet Count 126 Mean Platelet Volume 9.1 Neutrophils (%) (Auto) 74.2 Lymphocytes (%) (Auto) 11.0 Monocytes (%) (Auto) 13.8 Eosinophils (%) (Auto) 0.5 Basophils (%) (Auto) 0.5 Neutrophils # (Auto) 5.0 Lymphocytes # (Auto) 0.7 Monocytes # (Auto) 0.9 Eosinophils # (Auto) 0.0 Basophils # (Auto) 0.0 CBC Comment DIFF FINAL Differential Comment Sodium Level 138 Potassium Level 4.8 Chloride Level 104 Carbon Dioxide Level 26.8 Anion Gap 7 Blood Urea Nitrogen 40 Creatinine 2.89 Estimat Glomerular Filtration 20 Rate Random Glucose 130 Calcium Level 8.3 Date/Time Procedure Status Source Growth 08/29/16 08:52 Gram Stain - Final Resulted Wound Other 08/29/16 08:52 Wound Culture - Preliminary Resulted Wound Other NO GROWTH IN 48 HOURS. Result Diagram: 08/31/1662008/31/16620 Imaging Last Impressions Chest X-Ray 08/31/16 06 Signed Impressions: Service Date/Time: Wednesday, August 31, 2016 05:20 - CONCLUSION: Worsening bibasilar consolidation and effusions, could be related to failure. Alfred Crain MD Assessment and Plan Assessment and Plan Assessment: This is a 66-year-old female with history of cardiomyopathy, now in what appears to be decompensating congestive heart failure despite aggressive management on the floor. She also has evidence of end organ dysfunction with acute kidney injury on top of chronic renal insufficiency. And her pulmonary status is worsening as evidenced by an increasing oxygen requirement. At this point, she is critically ill with now 3 organ systems which are involved in her decompensating heart failure. I have talked with both Dr. Lau and Dr. Aviles , we will pursue PA catheter placement and allow her right heart catheterization to guide optimization of cardiac function. RHC numbers from 08/31: RAP 20, RV 58/7, PA 47/28 (35), PCWP 34, art 129/82 (98) , HR 91, CO 3.6 LPM, CI 1.5, SVR 1744, SV 39 mL Her RHC numbers today demonstrate severely overloaded left ventricle with severely elevated LVEDP. Likely her JYOTI is secondary to congestive nephropathy and poor cardiac output (CI < 2.2). I would anticipate this component of her renal dysfunction will improve with aggressive diuresis and volume removal. If she does have any component of ATN, it may be difficult to diurese her, and we may be forced to employ renal replacement strategies, but for now, I would like to attempt forced diuresis. Plan: 1. Decompensated Left Ventricular Systolic Heart Failure -- PA catheter placement -- Bumex drip, 1mg bolus, 0.5mg/hr -- q6h bmp, mg with aggressive electrolyte replacement -- Milrinone 0.375 mcg/kg/min for inotropic support -- will place cui to help guide volume removal. q1h uop. strict I/Os. -- 1L fluid restriction 2. Acute kidney injury on Chronic renal insufficiency -- baseline Cr 1.2 -- trend daily Cr -- most likely large component of cardiorenal syndrome/congestive nephropathy from volume overload and poor cardiac output. -- forced diuresis despite JYOTI-- her renal function should improve by improving cardiac output and renal perfusion 3. Hypotension -- currently meeting goal of map > 65. may need to supplement with norepinephrine if she becomes hypotensive. -- continue to hold Entresto and carvedilol. This patient remains critically ill with one or more organ systems which are or may become a threat to life. I have spent in excess of 51 minutes discontinuously in the care and management of this patient. This time is exclusive of procedures, and includes, but is not limited to, evaluation of the patient, review of the medical record, discussions with family, consultants, nursing staff, or respiratory therapy, and documentation in the medical record. Code Status Full Code Discussed Condition With Dr. Lau, Fly Walters MD August 31, 2016 20:23
--- NOTE | 2016-08-31 20:24 | PD.PROCEDR ---
Procedure Note Procedure Central Line Procedure Note Right IJ 8.5 Maltese Cordis introducer sheath Diagnosis: Decompensated left ventricular systolic heart failure Indications: Need for central pressure monitoring Consent: Written consent was obtained from the patient Anesthesia: Versed 1 mg IV, lidocaine 1% locally Description of the Procedure: The patient was placed in the supine, mild- Trendelenburg position. The area was prepped and draped sterilely. A 19g needle was inserted under negative pressure aspiration and dark venous blood was obtained. A guidewire was inserted easily without resistance. A small incision was made using a #11 blade. Using a modified Seldinger technique, the dilator and 8.5 Maltese, 10 cm catheter were advanced over the guidewire without resistance. All ports were aspirated and flushed, and had brisk blood return. The line was secured at the skin using 2-0 silk interrupted sutures. A Biopatch and Transparent sterile dressing were applied. There were no immediate complications noted. There was minimal EBL. The patient tolerated the procedure well. Ultrasound Guidance: Ultrasound guidance was used to identify the right internal jugular vein. The vascular anatomy of the right anterior neck was normal. The vessel was cannulated under direct, real-time ultrasound visualization. After placement of the guidewire, confirmation of the guidewire in the lumen of the vessel was made using ultrasound visualization, before dilation of the tract. A Chest x-ray has been ordered. I personally performed the procedure. Fly Whipple MD August 31, 2016 20:24
--- NOTE | 2016-08-31 20:27 | PD.PROCEDR ---
Procedure Note Procedure Pulmonary Artery Catheter Procedure Note Right IJ pulmonary artery catheter Diagnosis: Decompensated left ventricular systolic heart failure Indications: Need for central pressure monitoring and thermodilution cardiac output Consent: Written consent was obtained Anesthesia: Versed 1 mg IV Description of the Procedure: The patient was placed in the supine, mild-Reverse -Trendelenburg position. The area was prepped and draped sterilely. A 6 Fr pulmonary artery catheter was flushed, and all ports were checked, including PA , CVP, infusion port. The balloon was tested and inflated and deflated easily. Through an existing introducer sheath, the catheter was inserted to a depth of 20 cm and the balloon was inflated without resistance. The PA catheter was advanced under continuous waveform hemodynamic monitoring and appropriate RA, RV , PA, and PCWP waveforms were achieved. The balloon was deflated. The line was secured to the introducer sheath using a sterile cover. There were no immediate complications noted. There was minimal EBL. The patient tolerated the procedure well. PA catheter secured at: 60 cm. Hemodynamic Data: RAP: 20 mmHg RV: 58/7 mmHg PAP: 47/28(35) mmHg PCWP: 34 mmHg achieved at 64 cm Mixed Venous SvO2: Pending Cardiac Output: 3.6 L/min Cardiac Index: 1.5 A Chest x-ray has been ordered. I personally performed the procedure. Fly Whipple MD August 31, 2016 20:26
--- NOTE | 2016-08-31 20:46 | RADRPT ---
EXAM DATE/TIME: 08/31/2016 20:14 [facility] COMPARISON: CHEST SINGLE AP, August 31, 2016, 12:10. INDICATIONS : Central line placement MEDICAL HISTORY : Hypertension. Myocardial infarction. SURGICAL HISTORY : Pacemaker. ENCOUNTER: Initial ACUITY: 1 day PAIN SCORE: 0/10 LOCATION: Bilateral chest FINDINGS: A single portable frontal view of the chest shows a replacement right-sided central line. The tip is at the lower right atrial level. No pneumothorax. Left-sided pacing device. Cardiomegaly. Bibasilar p ulmonary infiltrates are stable. CONCLUSION: 1. Right-sided central line with the tip fairly low in the right atrium. No pneumothorax. 2. Unchanged cardiomegaly and bilateral pulmonary infiltrates. Cecil Choudhury Jr., MD on August 31, 2016 at 20:44 Board Certified Radiologist. This report was verified electronically.
[2016-08-31] MEDS: SACUBITRIL/VALSARTAN 24 MG-26 MG TAB PO SCH (21:00)
[2016-08-31] MEDS: CARVEDILOL 3.125 MG TAB PO SCH (21:00)
[2016-08-31] MEDS: ATORVASTATIN 20 MG TAB PO SCH (21:53)
[2016-08-31] MEDS: MILRINONE INJ 20 MG in SODIUM CHLORIDE 0.9% INJ 80 ML IV SCH (21:53)
[2016-08-31] MEDS: PANTOPRAZOLE SOD 40 MG DELAYED RELEASE TAB PO SCH (21:53)
[2016-08-31] MEDS: DOCUSATE CALCIUM 240 MG CAP PO SCH (21:53)
[2016-09-01] VITALS (9 sets, daily range): BP systolic 100–160; BP diastolic 52–97; PULSE 71–102; RESP 18–20; TEMP 97.3–99.2; O2SAT 92–99
[2016-09-01 00:43] LABS: HEMATOCRIT 32.4 % (35.0-46.0); MEAN CORPUSCULAR HEMOGLOBIN 27.3 PG (27.0-34.0); MEAN CORPUSCULAR HGB CONC 32.5 % (32.0-36.0); PLATELET COUNT 132 TH/MM3 (150-450); RED BLOOD COUNT 3.85 MIL/MM3 (4.00-5.30); RED CELL DISTRIBUTION WIDTH 16.9 % (11.6-17.2); REVIEW FLAG FINAL; WHITE BLOOD COUNT 4.6 TH/MM3 (4.0-11.0)
[2016-09-01 01:20] LABS: BICARBONATE 29.4 MEQ/L (21.0-32.0); MAGNESIUM 1.9 MG/DL (1.5-2.5); POTASSIUM 4.1 MEQ/L (3.5-5.1)
[2016-09-01] MEDS: RESP: ALBUTEROL 2.5 MG/3 ML NEB (SCH) NEB ×4 (03:33→21:35)
[2016-09-01] MEDS: MILRINONE INJ 20 MG in SODIUM CHLORIDE 0.9% INJ 80 ML IV SCH ×3 (04:03→15:16)
--- NOTE | 2016-09-01 06:43 | HHI.CCPN ---
Subjective Remarks/Hospital Course Hospital Course: This is a 66-year-old female with a history of severe systolic heart failure, cardiomyopathy, who was admitted electively on 08/29 for placement of an epicardial pacing lead for resynchronization therapy by Dr. Lau. Postoperatively, the patient has developed worsening shortness of breath and has gained almost 10 pounds over the last 3 days, despite aggressive diuresis. Also during this time, her creatinine has risen from a baseline of approximately 1.2 up to 2.9 this morning. I talked with Dr. Aviles today who would like a higher level of care and increased cardiac monitoring to assist in optimizing the patient, since she is clearly failing her current CHF regimen, and is decompensating despite her attempts at optimization. I talked with the patient and she endorses worsening shortness of breath, particularly orthopnea. denies chest pain. denies any other related symptoms. I reviewed her most recent echocardiogram from 08/31 which demonstrates an EF of 20-25%, what appears to my read to be moderate RV dysfunction, severe LV dysfunction. No clinical significant valvular lesions. Initial RHC numbers from 08/31: RAP 20, RV 58/7, PA 47/28 (35), PCWP 34, art 129/ 82 (98), HR 91, CO 3.6 LPM, CI 1.5, SVR 1744, SV 39 mL Subjective: 09/01: subjectively she feels much better. almost 5L overnight. RHC numbers today : HR 98, art 118/68 (82), RAP 5, PAP 45/14 (26), PCWP 12, CO 6 LPM, CI 2.6, SVR 1017, SV 62 mL. Creatinine improved significantly. Objective Vital Signs Date Time Temp Pulse Resp B/P Pulse Ox O2 Delivery O2 Flow Rate FiO2 09/01/16 04:00 71 09/01/16 04:00 92 Nasal Cannula 4.00 09/01/16 00:00 97.3 20 137/89 Intake and Output 08/31/16 08/31/16 09/01/16 08:00 16:00 00:00 Intake Total 490 ml Output Total 175 ml 400 ml Balance 315 ml -400 ml Result Diagram: 09/01/16 0025 09/01/16 0025 Imaging Last Impressions Chest X-Ray 08/31/16 0600 Signed Impressions: Service Date/Time: Wednesday, August 31, 2016 05:20 - CONCLUSION: Worsening bibasilar consolidation and effusions, could be related to failure. Alfred Crain MD Objective Remarks GENERAL: Middle-aged female, sitting in bed, alert and oriented HEENT: Cephalic. Atraumatic. Mucous membranes are moist. Pupils equal, round , reactive, conjugate NECK: Trachea is midline. There is JVD a few cm above the clavicle today. right IJ introducer and PAC clean and dry, dressing intact. CHEST: Equal chest rise. unlabored. CARDIOVASCULAR: Normal rate, regular rhythm. Paced rhythm by telemetry. ABDOMEN: Soft, obese, nontender, nondistended. No guarding. MUSCULOSKELETAL: Distal pulses 2+. 1+ pitting edema of the lower extremities NEUROLOGICAL: RASS 0. Follows commands in all 4 extremity's. No gross focal sensory or motor deficits A/P Assessment and Plan Assessment: This is a 66-year-old female with history of cardiomyopathy, now in what appears to be decompensating congestive heart failure despite aggressive management on the floor. Significantly improved this morning. Her SV has doubled, cardiac output has almost doubled as well. She clinically feels better , her GFR has increased significantly. I do not think we are quite back to dry weight yet, but given that we have diuresed almost 5L, we will back off slightly on the forced diuresis and aim for net -2L over the next 24h. Decrease milrinone to 0.25 mcg/kg/min, and decrease bumex drip to 0.25 mg/hr. Continue aggressive electrolyte replacement and close monitoring of renal function. Plan: 1. Decompensated Left Ventricular Systolic Heart Failure- improving. -- continue PA catheter today. -- Bumex drip, decrease to 0.25mg/hr -- q6h bmp, mg with aggressive electrolyte replacement -- decrease Milrinone to 0.25 mcg/kg/min for inotropic support -- continue Murray catheter today while we continue aggressive diuresis. q1h uop. strict I/Os. -- 1L fluid restriction 2. Acute kidney injury on Chronic renal insufficiency- improving. -- baseline Cr 1.2 -- peak Cr 2.9, today 1.8. continue to trend. -- most likely large component of cardiorenal syndrome/congestive nephropathy from volume overload and poor cardiac output. -- forced diuresis despite JYOTI-- her renal function is improving by improving cardiac output and renal perfusion 3. Hypotension- resolved. -- currently meeting goal of map > 65. may need to supplement with norepinephrine if she becomes hypotensive. -- continue to hold Entresto and carvedilol. -- if we successfully wean off milrinone, will start with carvedilol for bp support, and allow for better renal recovery and then entresto as second agent. Fly Whipple MD September 01, 2016 06:43
[2016-09-01 06:57] LABS: BICARBONATE 30.9 MEQ/L (21.0-32.0); MAGNESIUM 1.8 MG/DL (1.5-2.5); POTASSIUM 3.9 MEQ/L (3.5-5.1)
[2016-09-01] MEDS: LOW DOSE INSULIN NOVOLOG SUPPLEMENTAL SCALE SQ SCH ×4 (07:00→21:36)
[2016-09-01] MEDS: ACETAMINOPHEN/HYDROcodone 325 MG/5 MG TAB PO PRN (07:31)
[2016-09-01] MEDS: SODIUM CHLORIDE 0.9% FLUSH 5 ML FLUSH IV FLUSH SCH ×2 (08:31→19:56)
[2016-09-01] MEDS: ASPIRIN EC 81 MG TABEC PO SCH (08:33)
[2016-09-01] MEDS: SPIRONOLACTONE 25 MG TAB PO SCH (09:00)
--- NOTE | 2016-09-01 09:12 | PD.CAR.PN ---
CVT Progress Note CVT: POD #: 3 Subjective/Hospital Course: 66/ female hx of 1. Cardiomyopathy , CHF, Diabetes Mellitus, Malfunctioning Coronary Sinus Lead, Severe Left Ventricular Dysfunction surgery : Left Lateral Mini-Thoracotomy, Epicardial Left Ventricular Lead Placement, Removal of Coronary Sinus Lead, Removal and Replacement of BiVentricular Pacemaker-AICD Generator Device 08/29 08/30 chest tube removed without difficulty pt has low sat mid 80's when off 02 + walk test, will need to be dc on Home 02 eval labs today 09/01/16 Improved on milrinone infusion tx. No complaints. 08/31 pt had episode of hypotension again this am all meds held , bolused with 250cc/ NS worsening renal indices / will need nephro consult also re-consult Dr Aviles CXR and BMP noted, volume overload / HX CHF needs aggressive pulm toileting / diuresis ( will leave to nephro/ non - oliguric ) Objective: Vital Signs Date Time Temp Pulse Resp B/P Pulse Ox O2 Delivery O2 Flow Rate FiO2 09/01/16 07:00 97 Nasal Cannula 4.00 09/01/16 07:00 95 09/01/16 07:00 97.9 93 18 125/76 97 09/01/16 04:00 71 09/01/16 04:00 97.6 97 20 160/97 92 09/01/16 04:00 92 Nasal Cannula 4.00 09/01/16 03:00 96 Nasal Cannula 4.00 09/01/16 00:00 97.3 95 20 137/89 92 08/31/16 23:45 77 08/31/16 23:45 96 Nasal Cannula 3.00 08/31/16 22:22 93 Nasal Cannula 3.00 08/31/16 20:00 98.3 95 20 136/100 95 08/31/16 20:00 95 Nasal Cannula 3.00 08/31/16 19:00 87 08/31/16 17:48 79 08/31/16 16:58 97 Nasal Cannula 2.00 08/31/16 16:58 97.4 89 18 108/71 97 08/31/16 13:00 79 08/31/16 12:00 80 08/31/16 11:11 98.4 84 18 92/62 95 08/31/16 11:11 95 Nasal Cannula 2.00 5/26/17 11:00 77 08/31/16 10:00 82 08/31/16 09:44 95 Nasal Cannula 2.00 Labs: Laboratory Tests Test 08/31/16 09/01/16 09/01/16 22:20 00:25 06:15 Urine Color (YELLW/STRAW) Urine Turbidity (CLEAR) Urine pH (5.0-8.5) Urine Specific [place] (1.002-1.035) Urine Protein mg/dL (NEG-TRACE) Urine Glucose (UA) mg/dL (NEG) Urine Ketones mg/dL (NEG) Urine Occult Blood (NEG) Urine Nitrite (NEG) Urine Bilirubin (NEG) Urine Urobilinogen MG/DL (LESS THAN 2.0) Urine Leukocyte Esterase (NEG) Urine RBC /hpf (0-3) Urine WBC /hpf (0-5) Urine Squamous Epithelial /hpf (0-5) Cells Urine Bacteria /hpf (NONE) Urine Mucus /lpf (OCC) Microscopic Urinalysis Comment Urine Random Creatinine MG/DL (27-300) Urine Microalbumin/Creatinine MG/G CRE Ratio (0-30) White Blood Count 4.6 TH/MM3 (4.0-11.0) Red Blood Count 3.85 MIL/MM3 (4.00-5.30) Hemoglobin 10.5 GM/DL (11.6-15.3) Hematocrit 32.4 % (35.0-46.0) Mean Corpuscular Volume 84.0 FL (80.0-100.0) Mean Corpuscular Hemoglobin 27.3 PG (27.0-34.0) Mean Corpuscular Hemoglobin 32.5 % Concent (32.0-36.0) Red Cell Distribution Width 16.9 % (11.6-17.2) Platelet Count 132 TH/MM3 (150-450) Mean Platelet Volume 8.9 FL (7.0-11.0) Sodium Level 137 MEQ/L 141 MEQ/L (136-145) (136-145) Potassium Level 4.1 MEQ/L 3.9 MEQ/L (3.5-5.1) (3.5-5.1) Chloride Level 102 MEQ/L 102 MEQ/L (98-107) (98-107) Carbon Dioxide Level 29.4 MEQ/L 30.9 MEQ/L (21.0-32.0) (21.0-32.0) Anion Gap 6 MEQ/L (5-15) 8 MEQ/L (5-15) Blood Urea Nitrogen 41 MG/DL (7-18) 36 MG/DL (7-18) Creatinine 1.84 MG/DL 1.54 MG/DL (0.50-1.00) (0.50-1.00) Estimat Glomerular Filtration 33 ML/MIN (>89) 41 ML/MIN (>89) Rate Random Glucose 141 MG/DL 116 MG/DL (74-106) (74-106) Calcium Level 8.5 MG/DL 8.9 MG/DL (8.5-10.1) (8.5-10.1) Magnesium Level 1.9 MG/DL 1.8 MG/DL (1.5-2.5) (1.5-2.5) Result Diagram: 09/01/16 0025 09/01/16 0615 Cardiovascular: RRR, paced Pulmonary: Few crackles bilat GI/: NABS, NT Incision: dry and intact Plan: I discussed her care with Dr. Whipple and she has done very well with milrinone infusion and PA catheter monitoring. Her weight is down ~4-5 kg and she is breathing and feels much better. Her renal function is also almost back to baseline. Plan: continue milrinone and further diuresis per Dr. Whipple (1) CHF (congestive heart failure), NYHA class III Plan: all meds held 2/2 hypotension s/p fluid bolus on entresto, spironolactone, lasix (2) Hypoxemia Plan: will need home 02 add ezpap acapella (3) s/p epicardial lead placement Plan: chest tube dc without difficulty 02 sat marginal / did not pass home walk test will recheck labs, BP low this am / improved after fluid bolus 250cc/ will need to caution further fluid with low EF 25% (4) Acute kidney injury Plan: consult placed with nephrology hold BP Nelia Patel MD September 01, 2016 09:12
--- NOTE | 2016-09-01 10:07 | PD.CARD.PN ---
Subjective Subjective Remarks The patient denies chest pain, shortness of breath, palpitations, GI symptoms or bleeding. Telemetry reveals atrial synchronous pacemaker. Objective Medications Reviewed Vital Signs / I&O Vital Signs Date Time Temp Pulse Resp B/P Pulse Ox O2 Delivery O2 Flow Rate FiO2 09/01/16 07:00 97 Nasal Cannula 4.00 09/01/16 07:00 95 09/01/16 07:00 93 125/76 09/01/16 07:00 97.9 93 18 125/76 97 09/01/16 04:00 71 09/01/16 04:00 97.6 97 20 160/97 92 09/01/16 04:00 92 Nasal Cannula 4.00 09/01/16 03:00 96 Nasal Cannula 4.00 09/01/16 00:00 97.3 95 20 137/89 92 08/31/16 23:45 77 08/31/16 23:45 96 Nasal Cannula 3.00 08/31/16 22:22 93 Nasal Cannula 3.00 08/31/16 20:00 98.3 95 20 136/100 95 08/31/16 20:00 95 Nasal Cannula 3.00 08/31/16 19:00 87 08/31/16 17:48 79 08/31/16 16:58 97 Nasal Cannula 2.00 08/31/16 16:58 97.4 89 18 108/71 97 08/31/16 13:00 79 08/31/16 12:00 80 08/31/16 11:11 98.4 84 18 92/62 95 08/31/16 11:11 95 Nasal Cannula 2.00 08/31/16 11:00 77 I/O 08/31/16 08/31/16 08/31/16 09/01/16 09/01/16 09/01/16 07:00 15:00 23:00 07:00 15:00 23:00 Intake Total 490 ml 660 ml Output Total 175 ml 400 ml 4850 ml Balance 315 ml -400 ml -4190 ml Intake Oral 240 ml 480 ml IV Total 250 ml 180 ml Output Urine Total 175 ml 400 ml 4850 ml # Bowel Movements 0 0 Physical Exam GENERAL: Well-nourished, well-developed patient in no apparent distress. SKIN: Warm and dry. NECK: JVD normal - less than or equal to 5 cm H20. CARDIOVASCULAR: Regular rate and rhythm without murmurs, or rubs. Possible S3. RESPIRATORY: Normal breath sounds - equal bilaterally. No accessory muscle use. No wheezes, rales or rubs. PERIPHERY: No cyanosis, or edema. Laboratory Laboratory Tests Test 08/31/16 09/01/16 09/01/16 22:20 00:25 06:15 Urine Color Urine Turbidity Urine pH Urine Specific [place] Urine Protein mg/dL Urine Glucose (UA) mg/dL Urine Ketones mg/dL Urine Occult Blood Urine Nitrite Urine Bilirubin Urine Urobilinogen MG/DL Urine Leukocyte Esterase Urine RBC /hpf Urine WBC /hpf Urine Squamous Epithelial /hpf Cells Urine Bacteria /hpf Urine Mucus /lpf Microscopic Urinalysis Comment Urine Random Creatinine MG/DL Urine Microalbumin/Creatinine MG/G CRE Ratio White Blood Count 4.6 TH/MM3 Red Blood Count 3.85 MIL/MM3 Hemoglobin 10.5 GM/DL Hematocrit 32.4 % Mean Corpuscular Volume 84.0 FL Mean Corpuscular Hemoglobin 27.3 PG Mean Corpuscular Hemoglobin 32.5 % Concent Red Cell Distribution Width 16.9 % Platelet Count 132 TH/MM3 Mean Platelet Volume 8.9 FL Sodium Level 137 MEQ/L 141 MEQ/L Potassium Level 4.1 MEQ/L 3.9 MEQ/L Chloride Level 102 MEQ/L 102 MEQ/L Carbon Dioxide Level 29.4 MEQ/L 30.9 MEQ/L Anion Gap 6 MEQ/L 8 MEQ/L Blood Urea Nitrogen 41 MG/DL 36 MG/DL Creatinine 1.84 MG/DL 1.54 MG/DL Estimat Glomerular Filtration 33 ML/MIN 41 ML/MIN Rate Random Glucose 141 MG/DL 116 MG/DL Calcium Level 8.5 MG/DL 8.9 MG/DL Magnesium Level 1.9 MG/DL 1.8 MG/DL Imaging Last 48 hours Impressions Chest X-Ray 08/31/16 0600 Signed Impressions: Service Date/Time: Wednesday, August 31, 2016 05:20 - CONCLUSION: Worsening bibasilar consolidation and effusions, could be related to failure. Alfred Crain MD Chest X-Ray 08/31/16 0000 Signed Impressions: Service Date/Time: Wednesday, August 31, 2016 20:14 - CONCLUSION: 1. Right-sided central line with the tip fairly low in the right atrium. No pneumothorax. 2. Unchanged cardiomegaly and bilateral pulmonary infiltrates. Cecil Choudhury Jr., MD Chest X-Ray 08/31/16 0000 Signed Impressions: Service Date/Time: Wednesday, August 31, 2016 12:10 - CONCLUSION: Cardiomegaly with improving bibasilar densities. Jonathan Lua MD Chest X-Ray 08/30/16 1200 Signed Impressions: Service Date/Time: August 11:42 - CONCLUSION: 1. Left chest tube has been removed. No pneumothorax is visualized. 2. Stable left basilar opacity. Alfred Coleman MD Assessment and Plan Problem List: (1) CHF (congestive heart failure), NYHA class III (2) Hypoxemia (3) s/p epicardial lead placement (4) Acute kidney injury Assessment and Plan The patient is doing better on intravenous Bumex and milrinone. Entresto ON carvedilol on hold because of acute kidney injury and hypotension. The patient is on sequentials for DVT prophylaxis. I will consult [facility] to assume on their service when she is transferred out of the unit. Keven Odom MD September 01, 2016 10:07
--- NOTE | 2016-09-01 13:33 | HHI.NPPN ---
Subjective History of Present Illness 66 year old with CKD ,JYOTI, Lead placement Objective Data Data 08/31/16 09/01/16 19:00 07:00 Intake Total 660 ml Output Total 400 ml 4850 ml Balance -400 ml -4190 ml Intake Oral 480 ml IV Total 180 ml Output Urine Total 400 ml 4850 ml # Bowel Movements 0 Vital Signs Date Time Temp Pulse Resp B/P Pulse Ox O2 Delivery O2 Flow Rate FiO2 09/01/16 11:00 94 Nasal Cannula 4.00 09/01/16 11:00 88 09/01/16 11:00 88 100/59 09/01/16 11:00 98.3 88 18 100/59 94 09/01/16 10:18 99 Nasal Cannula 3.00 09/01/16 07:00 97 Nasal Cannula 4.00 09/01/16 07:00 95 09/01/16 07:00 93 125/76 09/01/16 07:00 97.9 93 18 125/76 97 09/01/16 04:00 71 09/01/16 04:00 97.6 97 20 160/97 92 09/01/16 04:00 92 Nasal Cannula 4.00 09/01/16 03:00 96 Nasal Cannula 4.00 09/01/16 00:00 97.3 95 20 137/89 92 08/31/16 23:45 77 08/31/16 23:45 96 Nasal Cannula 3.00 08/31/16 22:22 93 Nasal Cannula 3.00 08/31/16 20:00 98.3 95 20 136/100 95 08/31/16 20:00 95 Nasal Cannula 3.00 08/31/16 19:00 87 08/31/16 17:48 79 08/31/16 16:58 97 Nasal Cannula 2.00 08/31/16 16:58 97.4 89 18 108/71 97 -: 09/01/16 0025 09/01/16 0615 Microbiology Physical Exam General Appearance: Well Developed, Well Nourished Neck Neck Exam: Neck Supple Pulmonary Resp Exam: Clear Bilaterally, Breath Sounds Equal Cardiology CV Exam: Regular Gastrointestinal/Abdomen GI Exam: Soft, Non-Tender Extremeties Extremities Exam: No Edema Neurologic Neuro Exam: Alert, Awake Assessment/Plan Problem List: (1) Acute kidney injury Plan: In 2009 her creatinine was 1.02; Pre operatively her creatinine was 1.24 , GFR 52 (CKD 3) May have underlying CKD JYOTI improved Cr declined 1.54 today on Bumex (2) CHF (congestive heart failure), NYHA class III Plan: EF 20-25% s/p AICD replacement monitor fluid volume status diuretics are on hold, cardiology is following (3) s/p epicardial lead placement Plan: cardiology is managing post operatively chest tubes have been removed (4) DM (diabetes mellitus) Plan: insulin as needed Amalia Devries MD September 01, 2016 13:33
[2016-09-01 15:11] LABS: BICARBONATE 33.7 MEQ/L (21.0-32.0); MAGNESIUM 1.8 MG/DL (1.5-2.5); POTASSIUM 4.1 MEQ/L (3.5-5.1)
--- NOTE | 2016-09-01 15:17 | RADRPT ---
EXAM DATE/TIME: 09/01/2016 14:50 [facility] COMPARISON: US KIDNEY/RENAL/BLADDER, August 08, 2009, 13:57. INDICATIONS : Increased BUN/Creatinine. MEDICAL HISTORY : Hypertension. Congestive heart failure. Diabetes. Cardiomyopathy. SURGICAL HISTORY : Pacemaker. section. Replacment pacemaker. ENCOUNTER: Initial ACUITY: 1 day PAIN SCORE: 0/10 LOCATION: Bilateral flank MEASUREMENTS: RIGHT KIDNEY: 10.9 x 4.8 x 4.6 cm LEFT KIDNEY: 11.2 x 4.5 x 5.0 cm FINDINGS: RIGHT KIDNEY: Renal cortex is normal in thickness and echotexture. No hydronephrosis, stone, or mass. LEFT KIDNEY: Renal cortex is normal in thickness and echotexture. No hydronephrosis, stone, or mass. BLADDER: Within normal limits given the degree of distension. Small right pleural effusion is noted. CONCLUSION: Limited exam but some body habitus. There is no obstruction. Renal size is appropriate. Petey Awan MD FACR on September 01, 2016 at 15:14 Board Certified Radiologist. This report was verified electronically.
[2016-09-01 19:16] LABS: BICARBONATE 35.5 MEQ/L (21.0-32.0); MAGNESIUM 1.6 MG/DL (1.5-2.5); POTASSIUM 3.8 MEQ/L (3.5-5.1)
[2016-09-01] MEDS: DOCUSATE CALCIUM 240 MG CAP PO SCH (19:55)
[2016-09-01] MEDS: ATORVASTATIN 20 MG TAB PO SCH (19:55)
[2016-09-01] MEDS: PANTOPRAZOLE SOD 40 MG DELAYED RELEASE TAB PO SCH (19:55)
[2016-09-02] VITALS (11 sets, daily range): BP systolic 95–114; BP diastolic 58–69; PULSE 87–101; RESP 20; TEMP 97.7–98.5; O2SAT 92–95
[2016-09-02] MEDS: ACETAMINOPHEN/HYDROcodone 325 MG/5 MG TAB PO PRN ×3 (00:26→08:16)
[2016-09-02 01:08] LABS: BICARBONATE 39.4 MEQ/L (21.0-32.0); MAGNESIUM 1.6 MG/DL (1.5-2.5); POTASSIUM 3.6 MEQ/L (3.5-5.1)
[2016-09-02] MEDS: RESP: ALBUTEROL 2.5 MG/3 ML NEB (SCH) NEB ×2 (04:34→09:57)
[2016-09-02 05:48] LABS: HEMATOCRIT 35.6 % (35.0-46.0); MEAN CELL VOLUME 84.4 FL (80.0-100.0); PLATELET COUNT 156 TH/MM3 (150-450); RED BLOOD COUNT 4.22 MIL/MM3 (4.00-5.30); RED CELL DISTRIBUTION WIDTH 16.6 % (11.6-17.2); REVIEW FLAG FINAL
[2016-09-02 06:03] LABS: BICARBONATE 40.7 MEQ/L (21.0-32.0); MAGNESIUM 1.6 MG/DL (1.5-2.5); POTASSIUM 3.5 MEQ/L (3.5-5.1)
[2016-09-02] MEDS: MILRINONE INJ 20 MG in SODIUM CHLORIDE 0.9% INJ 80 ML IV SCH ×4 (06:31→21:07)
[2016-09-02] MEDS: LOW DOSE INSULIN NOVOLOG SUPPLEMENTAL SCALE SQ SCH ×4 (06:48→21:07)
[2016-09-02] MEDS: MAGNESIUM SULFATE 2 GM/NS 100 ML IV SCH ×4 (08:00→09:56)
[2016-09-02] MEDS ORDERED: POTASSIUM CHLOR 40 MEQ PREMIX 100 ML IV ONE (08:00)
[2016-09-02] MEDS: ASPIRIN EC 81 MG TABEC PO SCH (08:45)
[2016-09-02] MEDS: SODIUM CHLORIDE 0.9% FLUSH 5 ML FLUSH IV FLUSH SCH ×2 (08:45→21:00)
[2016-09-02] MEDS: SPIRONOLACTONE 25 MG TAB PO SCH (08:45)
--- NOTE | 2016-09-02 09:54 | PD.CARD.PN ---
Subjective Subjective Remarks The patient denies chest pain, shortness of breath, palpitations or GI symptoms. Telemetry reveals sinus rhythm with pacemaker. Pulmonary capillary wedge pressure 21 this morning. She is still on intravenous Bumex and milrinone. Objective Medications Reviewed Vital Signs / I&O Vital Signs Date Time Temp Pulse Resp B/P Pulse Ox O2 Delivery O2 Flow Rate FiO2 09/02/16 07:00 95 Nasal Cannula 4.00 Humidified 09/02/16 07:00 93 114/67 09/02/16 07:00 97.7 93 20 114/67 95 09/02/16 07:00 91 09/02/16 04:00 92 111/68 09/02/16 04:00 95 Nasal Cannula 4.00 Humidified 09/02/16 04:00 97.8 92 20 111/68 95 09/02/16 03:10 87 09/02/16 01:30 20 09/02/16 00:00 98.5 95 20 114/69 95 09/02/16 00:00 93 09/02/16 00:00 95 114/69 09/02/16 00:00 95 Nasal Cannula 4.00 Humidified 09/01/16 21:35 96 Nasal Cannula 3.00 09/01/16 20:00 99 109/52 09/01/16 20:00 99.2 99 20 109/52 94 09/01/16 19:45 93 Nasal Cannula 4.00 Humidified 09/01/16 19:10 102 09/01/16 15:00 97 Nasal Cannula 4.00 09/01/16 15:00 95 09/01/16 15:00 95 100/57 09/01/16 15:00 98.9 95 18 100/57 97 09/01/16 11:00 94 Nasal Cannula 4.00 09/01/16 11:00 88 09/01/16 11:00 88 100/59 09/01/16 11:00 98.3 88 18 100/59 94 09/01/16 10:18 99 Nasal Cannula 3.00 I/O 09/01/16 09/01/16 09/01/16 09/02/16 09/02/16 09/02/16 07:00 15:00 23:00 07:00 15:00 23:00 Intake Total 660 ml 521 ml 857 ml Output Total 4850 ml 4600 ml 3500 ml Balance -4190 ml -4079 ml -2643 ml Intake Oral 480 ml 360 ml 720 ml IV Total 180 ml 161 ml 137 ml Output Urine Total 4850 ml 4600 ml 3500 ml # Bowel Movements 0 0 0 Physical Exam GENERAL: Well-nourished, well-developed patient in no apparent distress. SKIN: Warm and dry. NECK: JVD normal - less than or equal to 5 cm H20. CARDIOVASCULAR: Regular rate and rhythm without murmurs, or rubs. Possible S3. RESPIRATORY: Normal breath sounds - equal bilaterally. No accessory muscle use. No wheezes, rales or rubs. PERIPHERY: No cyanosis, or edema. Laboratory Laboratory Tests Test 09/01/16 09/01/16 09/02/16 09/02/16 14:11 18:20 00:10 05:25 Sodium Level 140 MEQ/L 140 MEQ/L 142 MEQ/L 140 MEQ/L Potassium Level 4.1 MEQ/L 3.8 MEQ/L 3.6 MEQ/L 3.5 MEQ/L Chloride Level 99 MEQ/L 97 MEQ/L 95 MEQ/L 94 MEQ/L Carbon Dioxide Level 33.7 MEQ/L 35.5 MEQ/L 39.4 MEQ/L 40.7 MEQ/L Anion Gap 7 MEQ/L 8 MEQ/L 8 MEQ/L 5 MEQ/L Blood Urea Nitrogen 34 MG/DL 33 MG/DL 29 MG/DL 30 MG/DL Creatinine 1.70 MG/DL 1.64 MG/DL 1.30 MG/DL 1.29 MG/DL Estimat Glomerular Filtration 36 ML/MIN 38 ML/MIN 49 ML/MIN 50 ML/MIN Rate Random Glucose 211 MG/DL 137 MG/DL 114 MG/DL 135 MG/DL Calcium Level 8.8 MG/DL 8.9 MG/DL 9.1 MG/DL 9.1 MG/DL Magnesium Level 1.8 MG/DL 1.6 MG/DL 1.6 MG/DL 1.6 MG/DL White Blood Count 5.0 TH/MM3 Red Blood Count 4.22 MIL/MM3 Hemoglobin 11.4 GM/DL Hematocrit 35.6 % Mean Corpuscular Volume 84.4 FL Mean Corpuscular Hemoglobin 27.0 PG Mean Corpuscular Hemoglobin 32.0 % Concent Red Cell Distribution Width 16.6 % Platelet Count 156 TH/MM3 Mean Platelet Volume 8.8 FL Imaging Last 48 hours Impressions Renal Ultrasound 09/01/16 0000 Signed Impressions: Service Date/Time: Thursday, September 01, 2016 14:50 - CONCLUSION: Limited exam but some body habitus. There is no obstruction. Renal size is appropriate. Petey Awan MD FACR Assessment and Plan Problem List: (1) CHF (congestive heart failure), NYHA class III (2) Hypoxemia (3) s/p epicardial lead placement (4) Acute kidney injury Assessment and Plan The patient is doing better on intravenous Bumex and milrinone. Entresto and carvedilol on hold because of acute kidney injury and hypotension. The patient is on sequentials for DVT prophylaxis. I will add Lovenox. [facility] consulted to assume on their service when she is transferred out of the unit. Keven Odom MD September 02, 2016 09:54
[2016-09-02] MEDS: ENOXAPARIN SODIUM 40 MG/0.4 ML SYRINGE SQ SCH (10:00)
--- NOTE | 2016-09-02 11:54 | HHI.CCPN ---
Subjective Remarks/Hospital Course Hospital Course: This is a 66-year-old female with a history of severe systolic heart failure, cardiomyopathy, who was admitted electively on 08/29 for placement of an epicardial pacing lead for resynchronization therapy by Dr. Lau. Postoperatively, the patient has developed worsening shortness of breath and has gained almost 10 pounds over the last 3 days, despite aggressive diuresis. Also during this time, her creatinine has risen from a baseline of approximately 1.2 up to 2.9 this morning. I talked with Dr. Aviles today who would like a higher level of care and increased cardiac monitoring to assist in optimizing the patient, since she is clearly failing her current CHF regimen, and is decompensating despite her attempts at optimization. I talked with the patient and she endorses worsening shortness of breath, particularly orthopnea. denies chest pain. denies any other related symptoms. I reviewed her most recent echocardiogram from 08/31 which demonstrates an EF of 20-25%, what appears to my read to be moderate RV dysfunction, severe LV dysfunction. No clinical significant valvular lesions. Initial RHC numbers from 08/31: RAP 20, RV 58/7, PA 47/28 (35), PCWP 34, art 129/ 82 (98), HR 91, CO 3.6 LPM, CI 1.5, SVR 1744, SV 39 mL Subjective: 09/01: subjectively she feels much better. almost 5L overnight. RHC numbers today : HR 98, art 118/68 (82), RAP 5, PAP 45/14 (26), PCWP 12, CO 6 LPM, CI 2.6, SVR 1017, SV 62 mL. Creatinine improved significantly. 09/02: continues to improve subjectively. still on 5L o2 by nc. net -6.7 L/24h and despite this, filling pressures continue to rise as we re-mobilize her extravascular fluid. Cr continues to downtrend. RHC numbers today: HR 98, art 114/69 (88), RAP 4, PAP 40/12 (24), PCWP 21, CO 4.5 LPM, CI 1.9, SVR 1476, SV 46 mL. Objective Vital Signs Date Time Temp Pulse Resp B/P Pulse Ox O2 Delivery O2 Flow Rate FiO2 09/02/16 11:00 93 09/02/16 11:00 94 Nasal Cannula 3.00 Humidified 09/02/16 11:00 102/58 09/02/16 11:00 97.7 20 Intake and Output 09/01/16 09/01/16 09/02/16 08:00 16:00 00:00 Intake Total 660 ml 521 ml Output Total 4850 ml 4600 ml Balance -4190 ml -4079 ml Result Diagram: 09/02/16 0509/02/16 0525 Imaging Last Impressions Chest X-Ray 08/31/16 0600 Signed Impressions: Service Date/Time: Wednesday, August 31, 2016 05:20 - CONCLUSION: Worsening bibasilar consolidation and effusions, could be related to failure. Alfred Crain MD Objective Remarks GENERAL: Middle-aged female, sitting in bed, alert and oriented HEENT: Cephalic. Atraumatic. Mucous membranes are moist. Pupils equal, round , reactive, conjugate NECK: Trachea is midline. There is JVD a few cm above the clavicle today. right IJ introducer and PAC clean and dry, dressing intact. CHEST: Equal chest rise. unlabored. CARDIOVASCULAR: Normal rate, regular rhythm. Paced rhythm by telemetry. ABDOMEN: Soft, obese, nontender, nondistended. No guarding. MUSCULOSKELETAL: Distal pulses 2+. 1+ pitting edema of the lower extremities NEUROLOGICAL: RASS 0. Follows commands in all 4 extremity's. No gross focal sensory or motor deficits A/P Assessment and Plan Assessment: This is a 66-year-old female with history of cardiomyopathy, now in what appears to be decompensating congestive heart failure despite aggressive management on the floor. Continues to improve. However, her filling pressures would suggest that her extravascular volume is still quite high, and as we diurese, we are remobilizing this fluid, so we may need at least another 24 - 48h of aggressive diuresis before we are at dry weight. Given our drop in cardiac output, we will continue milrinone therapy at 0.25 mcg/kg/min while we continue our bumex at 0.25 mg/hr. She is developing a significant metabolic alkalosis from contraction, and we will add diamox today to counteract this. Continue aggressive electrolyte replacement and close monitoring of renal function. Plan: 1. Decompensated Left Ventricular Systolic Heart Failure- improving. -- continue PA catheter today. -- Bumex drip 0.25mg/hr -- q6h bmp, mg with aggressive electrolyte replacement -- Milrinone 0.25 mcg/kg/min for inotropic support -- continue Murray catheter today while we continue aggressive diuresis. q1h uop. strict I/Os. -- 1L fluid restriction 2. Acute kidney injury on Chronic renal insufficiency- improving. -- baseline Cr 1.2 on admission, although per nephrology, baseline may be as low as 1.05 from prior visits. -- peak Cr 2.9, today 1.29. continue to trend. -- most likely large component of cardiorenal syndrome/congestive nephropathy from volume overload and poor cardiac output. -- forced diuresis despite JYOTI-- her renal function is improving by improving cardiac output and renal perfusion 3. Hypotension- resolved. -- currently meeting goal of map > 65. may need to supplement with norepinephrine if she becomes hypotensive. -- continue to hold Entresto and carvedilol. -- if we successfully wean off milrinone, will start with carvedilol for bp support, and allow for better renal recovery and then entresto as second agent. 4. Contraction metabolic alkalosis -- diamox 500mg iv q8h SCDs Lovenox Regular diet with 1L fluid restriction Remain in ICU. Fly Whipple MD September 02, 2016 11:54
[2016-09-02 12:34] LABS: BICARBONATE 40.8 MEQ/L (21.0-32.0); MAGNESIUM 2.7 MG/DL (1.5-2.5); POTASSIUM 5.4 MEQ/L (3.5-5.1)
--- NOTE | 2016-09-02 13:46 | HHI.NPPN ---
Subjective History of Present Illness 66 year old with CKD ,JYOTI, Lead placement Objective Data Data 09/01/16 09/02/16 19:00 07:00 Intake Total 521 ml 857 ml Output Total 4600 ml 3500 ml Balance -4079 ml -2643 ml Intake Oral 360 ml 720 ml IV Total 161 ml 137 ml Output Urine Total 4600 ml 3500 ml # Bowel Movements 0 0 Vital Signs Date Time Temp Pulse Resp B/P Pulse Ox O2 Delivery O2 Flow Rate FiO2 09/02/16 11:00 93 09/02/16 11:00 94 Nasal Cannula 3.00 Humidified 09/02/16 11:00 92 102/58 09/02/16 11:00 97.7 92 20 102/58 94 09/02/16 09:58 95 Nasal Cannula 3.00 09/02/16 07:00 95 Nasal Cannula 4.00 Humidified 09/02/16 07:00 93 114/67 09/02/16 07:00 97.7 93 20 114/67 95 09/02/16 07:00 91 09/02/16 04:00 92 111/68 09/02/16 04:00 95 Nasal Cannula 4.00 Humidified 09/02/16 04:00 97.8 92 20 111/68 95 09/02/16 03:10 87 09/02/16 01:30 20 09/02/16 00:00 98.5 95 20 114/69 95 09/02/16 00:00 93 09/02/16 00:00 95 114/69 09/02/16 00:00 95 Nasal Cannula 4.00 Humidified 09/01/16 21:35 96 Nasal Cannula 3.00 09/01/16 20:00 99 109/52 09/01/16 20:00 99.2 99 20 109/52 94 09/01/16 19:45 93 Nasal Cannula 4.00 Humidified 09/01/16 19:10 102 09/01/16 15:00 97 Nasal Cannula 4.00 09/01/16 15:00 95 09/01/16 15:00 95 100/57 09/01/16 15:00 98.9 95 18 100/57 97 -: 09/02/16 0525 09/02/16 1145 Physical Exam General Appearance: Well Developed, Well Nourished Neck Neck Exam: Neck Supple Pulmonary Resp Exam: Clear Bilaterally, Breath Sounds Equal Cardiology CV Exam: Regular Gastrointestinal/Abdomen GI Exam: Soft, Non-Tender Extremeties Extremities Exam: No Edema Neurologic Neuro Exam: Alert, Awake Assessment/Plan Problem List: (1) Acute kidney injury Plan: In 2009 her creatinine was 1.02; Pre operatively her creatinine was 1.24 , GFR 52 (CKD 3) May have underlying CKD JYOTI slightly worse Cr 1.4 k 5.4 on Bumex/Diamox UOP 8.[address] Marte to follow (2) CHF (congestive heart failure), NYHA class III Plan: EF 20-25% s/p AICD replacement monitor fluid volume status diuretics are on hold, cardiology is following (3) s/p epicardial lead placement Plan: cardiology is managing post operatively chest tubes have been removed (4) DM (diabetes mellitus) Plan: insulin as needed Amalia Devries MD September 02, 2016 13:46
[2016-09-02] MEDS ORDERED: CARVEDILOL 3.125 MG TAB PO ONE (16:45)
[2016-09-02 20:33] LABS: BICARBONATE 37.1 MEQ/L (21.0-32.0); MAGNESIUM 2.4 MG/DL (1.5-2.5); POTASSIUM 3.5 MEQ/L (3.5-5.1)
[2016-09-02] MEDS: ATORVASTATIN 20 MG TAB PO SCH (21:02)
[2016-09-02] MEDS: PANTOPRAZOLE SOD 40 MG DELAYED RELEASE TAB PO SCH (21:02)
[2016-09-02] MEDS: DOCUSATE CALCIUM 240 MG CAP PO SCH (21:02)
[2016-09-03] VITALS (15 sets, daily range): BP systolic 105–122; BP diastolic 69–81; PULSE 78–97; RESP 16–26; TEMP 97.6–98.6; O2SAT 93–97
[2016-09-03] MEDS: ACETAMINOPHEN/HYDROcodone 325 MG/5 MG TAB PO PRN (01:08)
[2016-09-03 04:18] LABS: HEMATOCRIT 36.6 % (35.0-46.0); MEAN CELL VOLUME 85.4 FL (80.0-100.0); MEAN CORPUSCULAR HEMOGLOBIN 26.9 PG (27.0-34.0); MEAN CORPUSCULAR HGB CONC 31.5 % (32.0-36.0); PLATELET COUNT 172 TH/MM3 (150-450); RED BLOOD COUNT 4.29 MIL/MM3 (4.00-5.30); REVIEW FLAG FINAL; WHITE BLOOD COUNT 4.7 TH/MM3 (4.0-11.0)
[2016-09-03 04:37] LABS: BICARBONATE 35.9 MEQ/L (21.0-32.0); MAGNESIUM 2.3 MG/DL (1.5-2.5); POTASSIUM 3.8 MEQ/L (3.5-5.1)
[2016-09-03] MEDS ORDERED: ALBUMIN HUMAN 25% 25 GM/100 ML BAGP IV ONE (06:30)
[2016-09-03] MEDS: LOW DOSE INSULIN NOVOLOG SUPPLEMENTAL SCALE SQ SCH ×4 (06:38→21:10)
--- NOTE | 2016-09-03 07:40 | HHI.CCPN ---
Subjective Remarks/Hospital Course Hospital Course: This is a 66-year-old female with a history of severe systolic heart failure, cardiomyopathy, who was admitted electively on 08/29 for placement of an epicardial pacing lead for resynchronization therapy by Dr. Lau. Postoperatively, the patient has developed worsening shortness of breath and has gained almost 10 pounds over the last 3 days, despite aggressive diuresis. Also during this time, her creatinine has risen from a baseline of approximately 1.2 up to 2.9 this morning. I talked with Dr. Aviles today who would like a higher level of care and increased cardiac monitoring to assist in optimizing the patient, since she is clearly failing her current CHF regimen, and is decompensating despite her attempts at optimization. I talked with the patient and she endorses worsening shortness of breath, particularly orthopnea. denies chest pain. denies any other related symptoms. I reviewed her most recent echocardiogram from 08/31 which demonstrates an EF of 20-25%, what appears to my read to be moderate RV dysfunction, severe LV dysfunction. No clinical significant valvular lesions. Initial RHC numbers from 08/31: RAP 20, RV 58/7, PA 47/28 (35), PCWP 34, art 129/ 82 (98), HR 91, CO 3.6 LPM, CI 1.5, SVR 1744, SV 39 mL Subjective: 09/01: subjectively she feels much better. almost 5L overnight. RHC numbers today : HR 98, art 118/68 (82), RAP 5, PAP 45/14 (26), PCWP 12, CO 6 LPM, CI 2.6, SVR 1017, SV 62 mL. Creatinine improved significantly. 09/02: continues to improve subjectively. still on 5L o2 by nc. net -6.7 L/24h and despite this, filling pressures continue to rise as we re-mobilize her extravascular fluid. Cr continues to downtrend. RHC numbers today: HR 98, art 114/69 (88), RAP 4, PAP 40/12 (24), PCWP 21, CO 4.5 LPM, CI 1.9, SVR 1476, SV 46 mL. 09/03: continues to have excellent diuresis. Cr bumped slightly. appears very close to dry weight. o2 down to 2L NC. RHC numbers today: HR 93, art 108/68 (88), RAP 7, PAP 41/18 (27), PCWP 13, CO 3.2 LPM, CI 1.4, SVR 1863, SV 34. Dry weight: 99 kg Objective Vital Signs Date Time Temp Pulse Resp B/P Pulse Ox O2 Delivery O2 Flow Rate FiO2 09/03/16 04:00 97.6 85 20 114/78 95 09/03/16 04:00 Nasal Cannula 2.00 Humidified Intake and Output 09/02/16 09/02/16 09/03/16 08:00 16:00 00:00 Intake Total 857 ml 962 ml Output Total 3500 ml 4525 ml Balance -2643 ml -3563 ml Result Diagram: 09/03/16 04009/03/16 0400 Imaging Last Impressions Chest X-Ray 08/31/16 0600 Signed Impressions: Service Date/Time: Wednesday, August 31, 2016 05:20 - CONCLUSION: Worsening bibasilar consolidation and effusions, could be related to failure. Alfred Crain MD Objective Remarks GENERAL: Middle-aged female, sitting in bed, alert and oriented HEENT: Cephalic. Atraumatic. Mucous membranes are moist. Pupils equal, round , reactive, conjugate NECK: Trachea is midline. There no jvd this morning. right IJ introducer and PAC clean and dry, dressing intact. CHEST: Equal chest rise. unlabored. CARDIOVASCULAR: Normal rate, regular rhythm. Paced rhythm by telemetry. ABDOMEN: Soft, obese, nontender, nondistended. No guarding. MUSCULOSKELETAL: Distal pulses 2+. 1+ pitting edema of the lower extremities NEUROLOGICAL: RASS 0. Follows commands in all 4 extremity's. No gross focal sensory or motor deficits A/P Assessment and Plan Assessment: This is a 66-year-old female with history of cardiomyopathy, now in what appears to be decompensating congestive heart failure despite aggressive management on the floor. Likely now at dry weight, and in fact, may be slightly intravascularly hypovolemic. Off milrinone. Off bumex. will give single dose concentrated albumin to help recruit intravascular volume. restart home carvedilol. will hold on entresto today given her mild JYOTI. will keep the PA catheter for this morning and watch her as we restart home medications. Likely could d/c swan later today. Dry weight: 99 kg Plan: 1. Decompensated Left Ventricular Systolic Heart Failure- improving. -- continue PA catheter this morning. -- continue Murray catheter today as our renal function is tenuous this morning. q1h uop. strict I/Os. -- 1L fluid restriction 2. Acute kidney injury on Chronic renal insufficiency- improving. -- baseline Cr 1.2 on admission, although per nephrology, baseline may be as low as 1.05 from prior visits. -- peak Cr 2.9, today 1.4 -- most likely large component of cardiorenal syndrome/congestive nephropathy from volume overload and poor cardiac output. 3. Hypertension -- currently meeting goal of map > 65. -- continue to hold Entresto -- Restart carvedilol 3.125 mg po BID. 4. Contraction metabolic alkalosis -- diamox 500mg iv q8h SCDs Lovenox Regular diet with 1L fluid restriction Remain in ICU. Fly Whipple MD September 03, 2016 07:40
[2016-09-03] MEDS: SODIUM CHLORIDE 0.9% FLUSH 5 ML FLUSH IV FLUSH SCH ×2 (09:00→20:40)
--- NOTE | 2016-09-03 09:30 | PD.CARD.PN ---
Subjective Subjective Remarks The patient denies chest pain, shortness of breath, palpitations, GI symptoms. Pulmonary Wedge pressure 13. Telemetry reveals sinus rhythm with atrial synchronous pacemaker. Objective Medications Reviewed Vital Signs / I&O Vital Signs Date Time Temp Pulse Resp B/P Pulse Ox O2 Delivery O2 Flow Rate FiO2 09/03/16 07:47 96 Nasal Cannula 4.00 09/03/16 04:00 97.6 85 20 114/78 95 09/03/16 04:00 95 Nasal Cannula 2.00 Humidified 09/03/16 04:00 85 114/78 09/03/16 03:50 78 09/03/16 02:10 20 09/03/16 01:00 90 113/79 09/03/16 00:00 93 Nasal Cannula 2.00 Humidified 09/03/16 00:00 97 113/77 09/03/16 00:00 94 09/03/16 00:00 98.2 94 20 113/77 93 09/02/16 21:10 92 Nasal Cannula 2.00 09/02/16 20:00 97 95/67 09/02/16 20:00 97.8 97 20 95/67 94 09/02/16 19:45 94 Nasal Cannula 2.00 Humidified 09/02/16 19:00 101 09/02/16 15:56 94 2.00 09/02/16 15:00 94 Nasal Cannula 2.00 Humidified 09/02/16 15:00 94 101/64 09/02/16 15:00 97.8 94 20 101/64 94 09/02/16 15:00 94 09/02/16 11:00 93 09/02/16 11:00 94 Nasal Cannula 3.00 Humidified 09/02/16 11:00 92 102/58 09/02/16 11:00 97.7 92 20 102/58 94 09/02/16 09:58 95 Nasal Cannula 3.00 I/O 09/02/16 09/02/16 09/02/16 09/03/16 09/03/16 09/03/16 07:00 15:00 23:00 07:00 15:00 23:00 Intake Total 857 ml 962 ml 720 ml Output Total 3500 ml 4525 ml 800 ml Balance -2643 ml -3563 ml -80 ml Intake Oral 720 ml 600 ml 720 ml IV Total 137 ml 362 ml Output Urine Total 3500 ml 4525 ml 800 ml # Bowel Movements 0 0 0 Physical Exam GENERAL: Well-nourished, well-developed patient in no apparent distress. SKIN: Warm and dry. NECK: JVD normal - less than or equal to 5 cm H20. CARDIOVASCULAR: Regular rate and rhythm without murmurs, or rubs. Possible S3. RESPIRATORY: Normal breath sounds - equal bilaterally. No accessory muscle use. No wheezes, rales or rubs. PERIPHERY: No cyanosis, or edema. Laboratory Laboratory Tests Test 09/02/16 09/02/16 09/03/16 11:45 19:55 04:00 Sodium Level 139 MEQ/L 139 MEQ/L 140 MEQ/L Potassium Level 5.4 MEQ/L 3.5 MEQ/L 3.8 MEQ/L Chloride Level 94 MEQ/L 94 MEQ/L 97 MEQ/L Carbon Dioxide Level 40.8 MEQ/L 37.1 MEQ/L 35.9 MEQ/L Anion Gap 4 MEQ/L 8 MEQ/L 7 MEQ/L Blood Urea Nitrogen 30 MG/DL 30 MG/DL 30 MG/DL Creatinine 1.44 MG/DL 1.42 MG/DL 1.39 MG/DL Estimat Glomerular Filtration 44 ML/MIN 45 ML/MIN 46 ML/MIN Rate Random Glucose 139 MG/DL 158 MG/DL 125 MG/DL Calcium Level 9.1 MG/DL 8.8 MG/DL 8.8 MG/DL Magnesium Level 2.7 MG/DL 2.4 MG/DL 2.3 MG/DL White Blood Count 4.7 TH/MM3 Red Blood Count 4.29 MIL/MM3 Hemoglobin 11.5 GM/DL Hematocrit 36.6 % Mean Corpuscular Volume 85.4 FL Mean Corpuscular Hemoglobin 26.9 PG Mean Corpuscular Hemoglobin 31.5 % Concent Red Cell Distribution Width 17.0 % Platelet Count 172 TH/MM3 Mean Platelet Volume 9.7 FL Assessment and Plan Problem List: (1) CHF (congestive heart failure), NYHA class III (2) Hypoxemia (3) s/p epicardial lead placement (4) Acute kidney injury Assessment and Plan The patient appears to be at dry weight. She has been switched to oral diuretics and beta samantha is being restarted at a low dose. DVT prophylaxis Hopefully will move to floor. will return tomorrow. Keven Odom MD September 03, 2016 09:30
--- NOTE | 2016-09-03 09:49 | HHI.NPPN ---
Subjective History of Present Illness 66 year old with CKD ,JYOTI, Lead placement Interval History patient was seen in CVICU. Excellent diuresis. Renal function is stable. Review of Systems General Constitutional: Fatigue Respiratory Lungs: SOB Objective Data Data 09/02/16 09/03/16 18:59 06:59 Intake Total 962 ml 720 ml Output Total 4525 ml 800 ml Balance -3563 ml -80 ml Intake Oral 600 ml 720 ml IV Total 362 ml Output Urine Total 4525 ml 800 ml # Bowel Movements 0 0 Vital Signs Date Time Temp Pulse Resp B/P Pulse Ox O2 Delivery O2 Flow Rate FiO2 09/03/16 07:47 96 Nasal Cannula 4.00 09/03/16 04:00 97.6 85 20 114/78 95 09/03/16 04:00 95 Nasal Cannula 2.00 Humidified 09/03/16 04:00 85 114/78 09/03/16 03:50 78 09/03/16 02:10 20 09/03/16 01:00 90 113/79 09/03/16 00:00 93 Nasal Cannula 2.00 Humidified 09/03/16 00:00 97 113/77 09/03/16 00:00 94 09/03/16 00:00 98.2 94 20 113/77 93 09/02/16 21:10 92 Nasal Cannula 2.00 09/02/16 20:00 97 95/67 09/02/16 20:00 97.8 97 20 95/67 94 09/02/16 19:45 94 Nasal Cannula 2.00 Humidified 09/02/16 19:00 101 09/02/16 15:56 94 2.00 09/02/16 15:00 94 Nasal Cannula 2.00 Humidified 09/02/16 15:00 94 101/64 09/02/16 15:00 97.8 94 20 101/64 94 09/02/16 15:00 94 09/02/16 11:00 93 09/02/16 11:00 94 Nasal Cannula 3.00 Humidified 09/02/16 11:00 92 102/58 09/02/16 11:00 97.7 92 20 102/58 94 09/02/16 09:58 95 Nasal Cannula 3.00 -: 09/03/16 0400 09/03/16 0400 Physical Exam General Appearance: Well Developed, Well Nourished Neck Neck Exam: Neck Supple Pulmonary Resp Exam: Clear Bilaterally, Breath Sounds Equal Cardiology CV Exam: Regular Gastrointestinal/Abdomen GI Exam: Soft, Non-Tender Extremeties Extremities Exam: No Edema Neurologic Neuro Exam: Alert, Awake Assessment/Plan Problem List: (1) Acute kidney injury Plan: Renal function is stable. She likely has cardiorenal syndrome. Continue diuresis as she gained weight over the weekend. Bumex drip has been stopped. She is now on Spironolactone and Lasix. (2) CHF (congestive heart failure), NYHA class III Plan: EF 20-25% s/p AICD replacement monitor fluid volume status cardiology is following (3) s/p epicardial lead placement Plan: cardiology is managing post operatively chest tubes have been removed (4) DM (diabetes mellitus) Plan: insulin as needed Sourav Marte MD September 03, 2016 09:49
[2016-09-03] MEDS: FUROSEMIDE 40 MG TAB PO SCH ×2 (09:52→18:06)
[2016-09-03] MEDS: SPIRONOLACTONE 25 MG TAB PO SCH (09:52)
[2016-09-03] MEDS: CARVEDILOL 3.125 MG TAB PO SCH ×2 (09:52→20:40)
[2016-09-03] MEDS: ASPIRIN EC 81 MG TABEC PO SCH (09:52)
[2016-09-03] MEDS: ENOXAPARIN SODIUM 40 MG/0.4 ML SYRINGE SQ SCH (10:46)
[2016-09-03 16:37] LABS: POTASSIUM 3.8 MEQ/L (3.5-5.1)
[2016-09-03] MEDS ORDERED: ALBUMIN HUMAN 25% 12.5 GM/50 ML BAGP IV ONE ×2 (17:16→18:30)
[2016-09-03] MEDS: DOCUSATE CALCIUM 240 MG CAP PO SCH (20:39)
[2016-09-03] MEDS: PANTOPRAZOLE SOD 40 MG DELAYED RELEASE TAB PO SCH (20:39)
[2016-09-03] MEDS: ATORVASTATIN 20 MG TAB PO SCH (20:40)
[2016-09-04] VITALS (18 sets, daily range): BP systolic 102–129; BP diastolic 58–76; PULSE 79–99; RESP 17–20; TEMP 98.2–99; O2SAT 92–97
[2016-09-04 05:27] LABS: HEMATOCRIT 39.3 % (35.0-46.0); MEAN CELL VOLUME 84.9 FL (80.0-100.0); MEAN CORPUSCULAR HEMOGLOBIN 27.2 PG (27.0-34.0); PLATELET COUNT 196 TH/MM3 (150-450); RED BLOOD COUNT 4.63 MIL/MM3 (4.00-5.30); RED CELL DISTRIBUTION WIDTH 16.6 % (11.6-17.2); REVIEW FLAG FINAL; WHITE BLOOD COUNT 5.1 TH/MM3 (4.0-11.0)
[2016-09-04 05:35] LABS: BICARBONATE 31.4 MEQ/L (21.0-32.0); POTASSIUM 3.5 MEQ/L (3.5-5.1)
[2016-09-04] MEDS: POTASSIUM CHLOR 20 MEQ PREMIX 100 ML IV PRN ×2 (06:14→06:15)
[2016-09-04] MEDS: LOW DOSE INSULIN NOVOLOG SUPPLEMENTAL SCALE SQ SCH ×4 (06:14→20:58)
--- NOTE | 2016-09-04 08:54 | PD.CAR.PN ---
CVT Progress Note CVT: POD #: 6 Subjective/Hospital Course: 66/ female hx of 1. Cardiomyopathy , CHF, Diabetes Mellitus, Malfunctioning Coronary Sinus Lead, Severe Left Ventricular Dysfunction surgery : Left Lateral Mini-Thoracotomy, Epicardial Left Ventricular Lead Placement, Removal of Coronary Sinus Lead, Removal and Replacement of BiVentricular Pacemaker-AICD Generator Device 08/29 08/30 chest tube removed without difficulty pt has low sat mid 80's when off 02 + walk test, will need to be dc on Home 02 eval labs today 09/01/16 Improved on milrinone infusion tx. No complaints. 08/31 pt had episode of hypotension again this am all meds held , bolused with 250cc/ NS worsening renal indices / will need nephro consult also re-consult Dr Aviles CXR and BMP noted, volume overload / HX CHF needs aggressive pulm toileting / diuresis ( will leave to nephro/ non - oliguric ) 09/04 pt now on 1 liter 02, has diuresed well , pt at ideal weight will dc cordis / swan dylan cath already removed dc cui cath transfer to stepdown, consult pt CM to eval for home health care, repeat home walk test in am creatinine 1.47/ on fluid restriction Objective: GENERAL: SKIN: Warm and dry.incision intact and well approximated left upper chest and mid chest HEAD: Normocephalic. EYES: No scleral icterus. No injection or drainage. NECK: Supple, trachea midline. No JVD or lymphadenopathy. CARDIOVASCULAR: Regular rate and rhythm without murmurs, gallops, or rubs. V paced , faint pedal edema RESPIRATORY: Breath sounds equal bilaterally. No accessory muscle use. GASTROINTESTINAL: Abdomen soft, non-tender, nondistended. MUSCULOSKELETAL: No cyanosis, or edema. BACK: Nontender without obvious deformity. No CVA tenderness. Vital Signs Date Time Temp Pulse Resp B/P Pulse Ox O2 Delivery O2 Flow Rate FiO2 09/04/16 07:25 92 Nasal Cannula 2.00 09/04/16 07:00 98.2 83 17 108/71 97 09/04/16 07:00 97 Nasal Cannula 2.00 09/04/16 07:00 83 09/04/16 03:00 98.2 84 20 129/76 94 09/04/16 03:00 82 09/04/16 03:00 94 Nasal Cannula 2.00 09/03/16 23:00 98 Nasal Cannula 2.00 09/03/16 23:00 98.6 94 16 113/81 95 09/03/16 23:00 90 09/03/16 22:03 94 Nasal Cannula 2.00 09/03/16 19:00 94 09/03/16 19:00 98.4 88 20 110/72 96 09/03/16 19:00 96 Nasal Cannula 2.00 09/03/16 15:34 99 Nasal Cannula 2.00 09/03/16 15:00 83 105/70 09/03/16 15:00 98.5 83 26 105/70 94 09/03/16 15:00 78 09/03/16 14:00 84 110/69 09/03/16 11:12 97 Nasal Cannula 2.00 09/03/16 11:12 98.3 91 26 122/79 97 09/03/16 11:00 91 09/03/16 11:00 91 122/79 09/03/16 10:53 97 Nasal Cannula 2.00 09/03/16 10:53 97.7 93 20 119/74 97 09/03/16 10:53 93 09/03/16 10:00 91 108/69 Labs: Laboratory Tests Test 09/04/16 04:30 White Blood Count 5.1 TH/MM3 (4.0-11.0) Red Blood Count 4.63 MIL/MM3 (4.00-5.30) Hemoglobin 12.6 GM/DL (11.6-15.3) Hematocrit 39.3 % (35.0-46.0) Mean Corpuscular Volume 84.9 FL (80.0-100.0) Mean Corpuscular Hemoglobin 27.2 PG (27.0-34.0) Mean Corpuscular Hemoglobin 32.0 % Concent (32.0-36.0) Red Cell Distribution Width 16.6 % (11.6-17.2) Platelet Count 196 TH/MM3 (150-450) Mean Platelet Volume 9.1 FL (7.0-11.0) Sodium Level 141 MEQ/L (136-145) Potassium Level 3.5 MEQ/L (3.5-5.1) Chloride Level 99 MEQ/L (98-107) Carbon Dioxide Level 31.4 MEQ/L (21.0-32.0) Anion Gap 11 MEQ/L (5-15) Blood Urea Nitrogen 36 MG/DL (7-18) Creatinine 1.47 MG/DL (0.50-1.00) Estimat Glomerular Filtration 43 ML/MIN (>89) Rate Random Glucose 141 MG/DL (74-106) Calcium Level 9.7 MG/DL (8.5-10.1) (Nicole Avendaño) Result Diagram: 09/04/1642909/04/16429 Telemetry: V paced (Nicole Avendaño) (1) CHF (congestive heart failure), NYHA class III Plan: back to baseline weight on fluid restriction back on low dose BB , spironolactone swan dylan cath removed restart entresto when ok with Dr Aviles on scheduled lasix (2) Hypoxemia Plan: recheck home walk test in am add ezpap acapella (3) s/p epicardial lead placement Plan: incisions healing well (4) Acute kidney injury Plan: creatinine 1.47 nephrology following hold BP meds (Nicole Avendaño) Nicole Avendaño September 04, 2016 08:54 Nelia Shipman MD September 04, 2016 12:29
[2016-09-04] MEDS: SODIUM CHLORIDE 0.9% FLUSH 5 ML FLUSH IV FLUSH SCH ×2 (09:00→20:56)
[2016-09-04] MEDS: FUROSEMIDE 40 MG TAB PO SCH ×2 (09:12→17:03)
[2016-09-04] MEDS: SPIRONOLACTONE 25 MG TAB PO SCH (09:13)
[2016-09-04] MEDS: CARVEDILOL 3.125 MG TAB PO SCH ×2 (09:13→20:56)
[2016-09-04] MEDS: ASPIRIN EC 81 MG TABEC PO SCH (09:13)
[2016-09-04] MEDS: ENOXAPARIN SODIUM 40 MG/0.4 ML SYRINGE SQ SCH (09:13)
--- NOTE | 2016-09-04 09:58 | HHI.NPPN ---
Subjective Renal Failure: Acute Interval History Renal function fluctuant but overall stable. Excellent urine output. Plan to be downgraded today. (Cyn Denton) Review of Systems General Constitutional: Fatigue (Cyn Denton) Respiratory Lungs: SOB (Cyn Denton) Objective Data Data 09/03/16 09/04/16 19:00 07:00 Intake Total 1040 ml 150 ml Output Total 1850 ml 2335 ml Balance -810 ml -2185 ml Intake Oral 1040 ml 100 ml IV Total 0 ml 50 ml Output Urine Total 1850 ml 2335 ml # Bowel Movements 0 0 Vital Signs Date Time Temp Pulse Resp B/P Pulse Ox O2 Delivery O2 Flow Rate FiO2 09/04/16 07:25 92 Nasal Cannula 2.00 09/04/16 07:00 98.2 83 17 108/71 97 09/04/16 07:00 97 Nasal Cannula 2.00 09/04/16 07:00 83 09/04/16 03:00 98.2 84 20 129/76 94 09/04/16 03:00 82 09/04/16 03:00 94 Nasal Cannula 2.00 09/03/16 23:00 98 Nasal Cannula 2.00 09/03/16 23:00 98.6 94 16 113/81 95 09/03/16 23:00 90 09/03/16 22:03 94 Nasal Cannula 2.00 09/03/16 19:00 94 09/03/16 19:00 98.4 88 20 110/72 96 09/03/16 19:00 96 Nasal Cannula 2.00 09/03/16 15:34 99 Nasal Cannula 2.00 09/03/16 15:00 83 105/70 09/03/16 15:00 98.5 83 26 105/70 94 09/03/16 15:00 78 09/03/16 14:00 84 110/69 09/03/16 11:12 97 Nasal Cannula 2.00 09/03/16 11:12 98.3 91 26 122/79 97 09/03/16 11:00 91 09/03/16 11:00 91 122/79 09/03/16 10:53 97 Nasal Cannula 2.00 09/03/16 10:53 97.7 93 20 119/74 97 09/03/16 10:53 93 09/03/16 10:00 91 108/69 (Cyn Denton B. SUPERVISOR PA[employer]RO[employer]) -: 09/04/16 0430 09/04/16 0430 Imaging Last Impressions Renal Ultrasound 09/01/16 0000 Signed Impressions: Service Date/Time: Thursday, September 01, 2016 14:50 - CONCLUSION: Limited exam but some body habitus. There is no obstruction. Renal size is appropriate. Petey Awan MD FACR Chest X-Ray 08/31/16 0600 Signed Impressions: Service Date/Time: Wednesday, August 31, 2016 05:20 - CONCLUSION: Worsening bibasilar consolidation and effusions, could be related to failure. Alfred Crain MD (CorrieCyn B. [employer]PERVIS[employer]) Physical Exam General Appearance: Well Developed, Well Nourished, No Acute Distress (Andrew Dentonon B. SUPERVISOR [employer]) Neck Neck Exam: Neck Supple (CorrieCyn B. SUPER[employer]) Pulmonary Resp Exam: Clear Bilaterally, Breath Sounds Equal (Corrie,Cyn B. SUPERVIS[employer]) Cardiology CV Exam: Regular (Corrie,Cyn B. [employer]VIS[employer]) Gastrointestinal/Abdomen GI Exam: Soft, Non-Tender (CorrieCyn B. [employer]) Musculoskeletal MS Exam: Joints Intact, Normal Tone (CorrieCyn B. SUPERVISOR [employer]) Integumentary Skin Exam: Clear, Warm, Dry, Intact (Corrie,Cyn B. SUPERVISOR [employer]) Extremeties Extremities Exam: No Edema, Pedal Pulses Palpable (CorrieCyn B. SUPERVIS[employer]) Neurologic Neuro Exam: Alert, Awake, Oriented, Speech Clear, Moving All Extremities ( Corrie,Cyn B. SUPERVIS[employer]) Psychiatric Psych Exam: Appropriate Responses (CorrieCyn B. [employer]PER[employer]) Assessment/Plan Discussed Condition With: Patient Assessment Summary: JYOTI/Acute Renal Failure, CHF Problem List: (1) Acute kidney injury Plan: Renal function is relatively stable. She likely has cardiorenal syndrome. Continue diuresis with Spironolactone and Lasix. Excellent response to diuretics follow renal function, urine output avoid nephrotoxic substances , avoid IVF daily renal panel (2) CHF (congestive heart failure), NYHA class III Plan: EF 20-25%, had exacerbation over the weekend, that has resolved s/p AICD replacement monitor fluid volume status cardiology is following (3) s/p epicardial lead placement Plan: cardiology is managing post operatively chest tubes removed last week (4) DM (diabetes mellitus) Plan: insulin as needed (Cyn Denton) Plan patient was seen and examined. Agree with above assessment and plan. (Sourav Marte MD) Cyn Denton September 04, 2016 09:58 Sourav Marte MD September 04, 2016 13:11
[2016-09-04] MEDS: ACETAMINOPHEN/HYDROcodone 325 MG/5 MG TAB PO PRN ×2 (10:31→21:01)
--- NOTE | 2016-09-04 19:37 | HHI.PR ---
Subjective Remarks Feeling better. No SOB Objective Vital Signs Date Time Temp Pulse Resp B/P Pulse Ox O2 Delivery O2 Flow Rate FiO2 09/04/16 18:00 94 09/04/16 17:00 94 09/04/16 16:00 92 09/04/16 15:00 93 09/04/16 15:00 98.8 82 20 103/67 96 09/04/16 15:00 96 Room Air 09/04/16 14:00 88 09/04/16 13:00 90 09/04/16 12:11 18 09/04/16 12:00 93 09/04/16 11:00 98.3 99 20 110/58 94 09/04/16 11:00 94 Room Air 09/04/16 11:00 99 09/04/16 07:25 92 Nasal Cannula 2.00 09/04/16 07:00 98.2 83 17 108/71 97 09/04/16 07:00 97 Nasal Cannula 2.00 09/04/16 07:00 83 09/04/16 03:00 98.2 84 20 129/76 94 09/04/16 03:00 82 09/04/16 03:00 94 Nasal Cannula 2.00 09/03/16 23:00 98 Nasal Cannula 2.00 09/03/16 23:00 98.6 94 16 113/81 95 09/03/16 23:00 90 09/03/16 22:03 94 Nasal Cannula 2.00 I/O 09/03/16 09/03/16 09/03/16 09/04/16 09/04/16 09/04/16 07:00 15:00 23:00 07:00 15:00 23:00 Intake Total 720 ml 1040 ml 150 ml 600 ml 480 ml Output Total 800 ml 1850 ml 2335 ml 300 ml 500 ml Balance -80 ml -810 ml -2185 ml 300 ml -20 ml Intake Oral 720 ml 1040 ml 100 ml 400 ml 480 ml IV Total 0 ml 50 ml 200 ml Output Urine Total 800 ml 1850 ml 2335 ml 300 ml 500 ml # Bowel Movements 0 0 0 0 0 Result Diagram: 09/04/16 0430 09/04/16 0430 Imaging Alert, fully oriented Lungs: ventilated Heart: S1, S2 regular, no gallop Abdomen: soft, no mass Ext: no edema Last Impressions Renal Ultrasound 09/01/16 0000 Signed Impressions: Service Date/Time: Thursday, September 01, 2016 14:50 - CONCLUSION: Limited exam but some body habitus. There is no obstruction. Renal size is appropriate. Petey Awan MD FACR Chest X-Ray 08/31/16 0600 Signed Impressions: Service Date/Time: Wednesday, August 31, 2016 05:20 - CONCLUSION: Worsening bibasilar consolidation and effusions, could be related to failure. Alfred Crain MD Current Medications Medications (Trade) Dose Ordered Sig/Ava Route Start Time Stop Time Status Last Admin (NS Flush) 2 ml BID IV FLUSH 08/29/16 21:00 09/03/16 20:40 (NS Flush) 2 ml UNSCH PRN IV FLUSH 08/29/16 09:30 (Protonix) 40 mg HS PO 08/29/16 21:00 09/03/16 20:39 (Zofran Inj) 4 mg Q6H PRN IV PUSH 08/29/16 09:30 (Surfak) 240 mg HS PO 08/29/16 21:00 09/03/16 20:39 (Milk Of Magnesia Liq) 30 ml DAILY PRN PO 08/29/16 09:30 (Tylenol) 650 mg Q4H PRN PO 08/29/16 09:30 ([place] 5-325 Mg) 1 tab Q3H PRN PO 08/29/16 09:30 09/04/16 10:31 (Ecotrin Ec) 81 mg DAILY PO 08/30/16 09:00 09/04/16 09:13 (Lipitor) 20 mg HS PO 08/29/16 21:00 09/03/16 20:40 (Coreg) 3.125 mg BID PO 08/29/16 21:00 09/04/16 09:13 (Aldactone) 25 mg DAILY PO 08/30/16 09:00 09/04/16 09:13 (Entresto 24-26 Mg) 1 tab BID PO 08/29/16 21:00 Hold 08/30/16 09:16 (D50w (Vial) Inj) 25 ml UNSCH PRN IV PUSH 08/29/16 18:00 (Glucagon Inj) 1 mg UNSCH PRN OTHER 08/29/16 18:00 Magnesium Oxide 800 mg 800 mg UNSCH PRN PO 08/31/16 20:00 09/01/16 19:55 Magnesium Sulfate 4 gm/Sodium Chloride 100 ml @ 50 mls/hr UNSCH PRN IV 08/31/16 20:00 09/02/16 08:03 Magnesium Sulfate 2 gm/Sodium Chloride 100 ml @ 50 mls/hr UNSCH PRN IV 08/31/16 20:00 Potassium Chloride 100 ml @ 50 mls/hr Q2H PRN IV 08/31/16 20:00 Potassium Chloride 100 ml @ 50 mls/hr Q2H PRN IV 08/31/16 20:00 09/04/16 06:15 Potassium Chloride 100 ml @ 50 mls/hr Q2H PRN IV-CENTRAL 08/31/16 20:00 (KCl 40 Meq Premix Inj) 100 ml @ 25 mls/hr UNSCH PRN IV-CENTRAL 08/31/16 20:00 09/02/16 21:25 Info 1 UNSCH .XX 08/31/16 20:00 (Lovenox Inj) 40 mg Q24H SQ 09/02/16 10:00 09/04/16 09:13 (Lasix) 60 mg BID@09,18 PO 09/03/16 09:00 09/04/16 17:03 Assessment and Plan Problem List: (1) CHF (congestive heart failure), NYHA class III Status: Acute Plan: Patient condition significantly improve. No SOB. No edema No oxygen needed. Ambulating Lasix will be decreased Entresto will be reinitiated Case discussed with Dr Choudhury over the weekend and with patient. If stable, can be DH tomorrow Marko Aviles MD September 04, 2016 19:37
[2016-09-04] MEDS: DOCUSATE CALCIUM 240 MG CAP PO SCH (20:56)
[2016-09-04] MEDS: ATORVASTATIN 20 MG TAB PO SCH (20:56)
[2016-09-04] MEDS: PANTOPRAZOLE SOD 40 MG DELAYED RELEASE TAB PO SCH (20:56)
[2016-09-04] MEDS: SACUBITRIL/VALSARTAN 24 MG-26 MG TAB PO SCH (21:00)
[2016-09-05] VITALS (17 sets, daily range): BP systolic 96–109; BP diastolic 63–67; PULSE 63–112; RESP 16–19; TEMP 98.6–98.7; O2SAT 95–96
[2016-09-05] MEDS: LOW DOSE INSULIN NOVOLOG SUPPLEMENTAL SCALE SQ SCH ×2 (06:22→11:00)
[2016-09-05 06:46] LABS: HEMATOCRIT 40.1 % (35.0-46.0); MEAN CELL VOLUME 84.3 FL (80.0-100.0); MEAN CORPUSCULAR HEMOGLOBIN 26.5 PG (27.0-34.0); MEAN CORPUSCULAR HGB CONC 31.4 % (32.0-36.0); PLATELET COUNT 187 TH/MM3 (150-450); RED BLOOD COUNT 4.75 MIL/MM3 (4.00-5.30); RED CELL DISTRIBUTION WIDTH 16.7 % (11.6-17.2); REVIEW FLAG FINAL; WHITE BLOOD COUNT 5.6 TH/MM3 (4.0-11.0)
[2016-09-05 07:04] LABS: BICARBONATE 29.4 MEQ/L (21.0-32.0); MAGNESIUM 2.3 MG/DL (1.5-2.5); POTASSIUM 3.7 MEQ/L (3.5-5.1)
--- NOTE | 2016-09-05 08:29 | PD.CARD.PN ---
Subjective Subjective Remarks Feels good, sitting up at bedside. Objective Medications Current Medications Medications (Trade) Dose Ordered Sig/Ava Route Start Time Stop Time Status Last Admin (NS Flush) 2 ml BID IV FLUSH 08/29/16 21:00 09/04/16 20:56 (NS Flush) 2 ml UNSCH PRN IV FLUSH 08/29/16 09:30 (Protonix) 40 mg HS PO 08/29/16 21:00 09/04/16 20:56 (Zofran Inj) 4 mg Q6H PRN IV PUSH 08/29/16 09:30 (Surfak) 240 mg HS PO 08/29/16 21:00 09/04/16 20:56 (Milk Of Magnesia Liq) 30 ml DAILY PRN PO 08/29/16 09:30 (Tylenol) 650 mg Q4H PRN PO 08/29/16 09:30 ([place] 5-325 Mg) 1 tab Q3H PRN PO 08/29/16 09:30 09/04/16 21:01 (Ecotrin Ec) 81 mg DAILY PO 08/30/16 09:00 09/04/16 09:13 (Lipitor) 20 mg HS PO 08/29/16 21:00 09/04/16 20:56 (Coreg) 3.125 mg BID PO 08/29/16 21:00 09/04/16 20:56 (Aldactone) 25 mg DAILY PO 08/30/16 09:00 09/04/16 09:13 (D50w (Vial) Inj) 25 ml UNSCH PRN IV PUSH 08/29/16 18:00 (Glucagon Inj) 1 mg UNSCH PRN OTHER 08/29/16 18:00 Magnesium Oxide 800 mg 800 mg UNSCH PRN PO 08/31/16 20:00 09/01/16 19:55 Magnesium Sulfate 4 gm/Sodium Chloride 100 ml @ 50 mls/hr UNSCH PRN IV 08/31/16 20:00 09/02/16 08:03 Magnesium Sulfate 2 gm/Sodium Chloride 100 ml @ 50 mls/hr UNSCH PRN IV 08/31/16 20:00 Potassium Chloride 100 ml @ 50 mls/hr Q2H PRN IV 08/31/16 20:00 Potassium Chloride 100 ml @ 50 mls/hr Q2H PRN IV 08/31/16 20:00 09/04/16 06:15 Potassium Chloride 100 ml @ 50 mls/hr Q2H PRN IV-CENTRAL 08/31/16 20:00 (KCl 40 Meq Premix Inj) 100 ml @ 25 mls/hr UNSCH PRN IV-CENTRAL 08/31/16 20:00 09/02/16 21:25 Info 1 UNSCH .XX 08/31/16 20:00 (Lovenox Inj) 40 mg Q24H SQ 09/02/16 10:00 09/04/16 09:13 (Lasix) 40 mg BID@09,18 PO 09/05/16 09:00 (Entresto 24-26 Mg) 1 tab BID PO 09/04/16 21:00 09/04/16 21:00 Vital Signs / I&O Vital Signs Date Time Temp Pulse Resp B/P Pulse Ox O2 Delivery O2 Flow Rate FiO2 09/05/16 08:20 98.6 84 17 100/63 95 09/05/16 06:00 85 09/05/16 05:00 63 09/05/16 04:00 98.7 94 16 109/67 96 09/05/16 04:00 96 Room Air 09/05/16 04:00 86 09/05/16 03:00 76 09/05/16 02:00 74 09/05/16 01:00 86 09/05/16 00:00 70 09/04/16 23:30 98.9 93 18 102/63 95 09/04/16 23:30 95 Room Air 09/04/16 23:00 83 09/04/16 22:00 90 09/04/16 21:00 79 09/04/16 20:00 96 09/04/16 19:45 99.0 96 18 105/66 94 09/04/16 19:45 94 Room Air 09/04/16 19:00 90 09/04/16 18:00 94 09/04/16 17:00 94 09/04/16 16:00 92 09/04/16 15:00 93 09/04/16 15:00 98.8 82 20 103/67 96 09/04/16 15:00 96 Room Air 09/04/16 14:00 88 09/04/16 13:00 90 09/04/16 12:11 18 09/04/16 12:00 93 09/04/16 11:00 98.3 99 20 110/58 94 09/04/16 11:00 94 Room Air 09/04/16 11:00 99 I/O 09/04/16 09/04/16 09/04/16 09/05/16 09/05/16 09/05/16 07:00 15:00 23:00 07:00 15:00 23:00 Intake Total 150 ml 600 ml 480 ml 480 ml Output Total 2335 ml 300 ml 500 ml 750 ml Balance -2185 ml 300 ml -20 ml -270 ml Intake Oral 100 ml 400 ml 480 ml 480 ml IV Total 50 ml 200 ml Output Urine Total 2335 ml 300 ml 500 ml 750 ml # Bowel Movements 0 0 0 0 Physical Exam GENERAL: Well-nourished, well-developed patient. SKIN: Warm and dry. HEAD: Normocephalic. EYES: No scleral icterus. No injection or drainage. NECK: Supple, trachea midline. No JVD or lymphadenopathy. CARDIOVASCULAR: Regular rate and rhythm without murmurs, gallops, or rubs. RESPIRATORY: Breath sounds equal bilaterally, diminished. No accessory muscle use. GASTROINTESTINAL: Abdomen soft, non-tender, nondistended. EXTREMITIES: No cyanosis, or edema. NEUROLOGICAL: Awake, alert, and oriented x 3. Non-focal. Laboratory Laboratory Tests Test 09/05/16 06:00 White Blood Count 5.6 TH/MM3 Red Blood Count 4.75 MIL/MM3 Hemoglobin 12.6 GM/DL Hematocrit 40.1 % Mean Corpuscular Volume 84.3 FL Mean Corpuscular Hemoglobin 26.5 PG Mean Corpuscular Hemoglobin 31.4 % Concent Red Cell Distribution Width 16.7 % Platelet Count 187 TH/MM3 Mean Platelet Volume 8.6 FL Sodium Level 141 MEQ/L Potassium Level 3.7 MEQ/L Chloride Level 101 MEQ/L Carbon Dioxide Level 29.4 MEQ/L Anion Gap 11 MEQ/L Blood Urea Nitrogen 40 MG/DL Creatinine 1.44 MG/DL Estimat Glomerular Filtration 44 ML/MIN Rate Random Glucose 139 MG/DL Calcium Level 9.9 MG/DL Magnesium Level 2.3 MG/DL Imaging Last Impressions Renal Ultrasound 09/01/16 0000 Signed Impressions: Service Date/Time: Thursday, September 01, 2016 14:50 - CONCLUSION: Limited exam but some body habitus. There is no obstruction. Renal size is appropriate. Petey Awan MD FACR Chest X-Ray 08/31/16 0600 Signed Impressions: Service Date/Time: Saturday, August 31, 2016 05:20 - CONCLUSION: Worsening bibasilar consolidation and effusions, could be related to failure. Alfred Crain MD Assessment and Plan Problem List: (1) CHF (congestive heart failure), NYHA class III Assessment and Plan: EF 20-30% by recent echo. Now on Entresto. Stable, denies shortness of breath. Okay to discharge home from electrophysiology standpoint when cleared by managing team per my discussion with Dr. Aviles. Follow up with him in 1-2 weeks. Problem Qualifiers (1) CHF (congestive heart failure), NYHA class III: Penny Edwards September 05, 2016 08:29
[2016-09-05] MEDS: SODIUM CHLORIDE 0.9% FLUSH 5 ML FLUSH IV FLUSH SCH (09:00)
[2016-09-05] MEDS ORDERED: FUROSEMIDE 40 MG TAB PO SCH (09:00)
--- NOTE | 2016-09-05 09:14 | HHI.NPPN ---
Subjective Renal Failure: Acute Interval History Sitting up in bed. Potential discharge today. Renal function is stable. ( Cyn Denton) Review of Systems General Constitutional: Fatigue (Cyn Denton) Respiratory Lungs: SOB (Cyn Denton) Cardiovascular Cardiac Remarks edema has improved (Cyn Denton) Objective Data Data 09/04/16 09/05/16 19:00 07:00 Intake Total 1080 ml 480 ml Output Total 800 ml 750 ml Balance 280 ml -270 ml Intake Oral 880 ml 480 ml IV Total 200 ml Output Urine Total 800 ml 750 ml # Bowel Movements 0 0 Vital Signs Date Time Temp Pulse Resp B/P Pulse Ox O2 Delivery O2 Flow Rate FiO2 09/05/16 08:20 98.6 84 17 100/63 95 09/05/16 06:00 85 09/05/16 05:00 63 09/05/16 04:00 98.7 94 16 109/67 96 09/05/16 04:00 96 Room Air 09/05/16 04:00 86 09/05/16 03:00 76 09/05/16 02:00 74 09/05/16 01:00 86 09/05/16 00:00 70 09/04/16 23:30 98.9 93 18 102/63 95 09/04/16 23:30 95 Room Air 09/04/16 23:00 83 09/04/16 22:00 90 09/04/16 21:00 79 09/04/16 20:00 96 09/04/16 19:45 99.0 96 18 105/66 94 09/04/16 19:45 94 Room Air 09/04/16 19:00 90 09/04/16 18:00 94 09/04/16 17:00 94 09/04/16 16:00 92 09/04/16 15:00 93 09/04/16 15:00 98.8 82 20 103/67 96 09/04/16 15:00 96 Room Air 09/04/16 14:00 88 09/04/16 13:00 90 09/04/16 12:11 18 09/04/16 12:00 93 09/04/16 11:00 98.3 99 20 110/58 94 09/04/16 11:00 94 Room Air 09/04/16 11:00 99 (Cyn Denton) -: 09/05/16 0600 09/05/16 0600 Imaging Last Impressions Renal Ultrasound 09/01/16 0000 Signed Impressions: Service Date/Time: Thursday, September 01, 2016 14:50 - CONCLUSION: Limited exam but some body habitus. There is no obstruction. Renal size is appropriate. Petey Awan MD FACR Chest X-Ray 08/31/16 06 Signed Impressions: Service Date/Time: Wednesday, August 31, 2016 05:20 - CONCLUSION: Worsening bibasilar consolidation and effusions, could be related to failure. Alfred Crain MD (Cyn Denton) Physical Exam General Appearance: Well Developed, Well Nourished, No Acute Distress, Comfortable ( Cyn DentonP) Throat Throat Exam: Oral Mucosa [place] & Moist (Cyn Denton BApolinar CRIMINALIST) Neck Neck Exam: Neck Supple (Cyn Denton) Pulmonary Resp Exam: Clear Bilaterally, Breath Sounds Equal, No Distress (Cyn Denton BApolinar MCCLELLANDP) Cardiology CV Exam: Regular, Good Perfusion (Cyn Denton) Gastrointestinal/Abdomen GI Exam: Soft, Non-Tender, Bowel Sounds Present (Cyn Denton) Musculoskeletal MS Exam: Joints Intact, Normal Gait, Normal Tone (Cyn Denton BApolinar MCCLELLANDP) Integumentary Skin Exam: Clear, Warm, Dry, Intact (Cyn Denton) Extremeties Extremities Exam: Pedal Pulses Palpable, Trace Edema (Cyn Denton BApolianr MCCLELLANDP) Neurologic Neuro Exam: Alert, Awake, Oriented, Speech Clear, Moving All Extremities ( Cyn DentonP) Psychiatric Psych Exam: Appropriate Responses (Cyn Denton) Assessment/Plan Discussed Condition With: Patient Assessment Summary: JYOTI/Acute Renal Failure, Fluid/Volume Overload, CHF Problem List: (1) Acute kidney injury Plan: Renal function has remained stable She likely has cardiorenal syndrome. stable from renal perspective, no acute electrolyte issues, she can be discharged home Continue diuresis with Spironolactone and Lasix. She has had an excellent response, the lasix dose was decreased by cardiology avoid nephrotoxic substances , Entresto has been restarted we will follow her in the outpatient setting in approximately 4-6 weeks to evaluate her baseline renal function (2) CHF (congestive heart failure), NYHA class III Plan: EF 20-25%, exacerbation has resolved s/p AICD replacement continue diuretics, discussed low Na diet, fluid restriction once home (3) s/p epicardial lead placement Plan: cardiology has followed (4) DM (diabetes mellitus) Plan: insulin as needed (Cyn Denton) Plan patient was seen and examined. Entresto has been restarted. Also on Spironolactone. Being discharged today. Carefully and closely monitor renal function as well as serum potassium. (Sourav Marte MD) Problem Qualifiers (1) CHF (congestive heart failure), NYHA class III: Cyn Denton September 05, 2016 09:14 Sourav Marte MD September 05, 2016 09:26
[2016-09-05] MEDS: ASPIRIN EC 81 MG TABEC PO SCH (09:32)
[2016-09-05] MEDS: SPIRONOLACTONE 25 MG TAB PO SCH (09:32)
[2016-09-05] MEDS: ENOXAPARIN SODIUM 40 MG/0.4 ML SYRINGE SQ SCH (09:33)
[2016-09-05] MEDS: CARVEDILOL 3.125 MG TAB PO SCH (09:33)
[2016-09-05] MEDS: SACUBITRIL/VALSARTAN 24 MG-26 MG TAB PO SCH (09:33)
[2016-09-05] MEDS: ACETAMINOPHEN/HYDROcodone 325 MG/5 MG TAB PO PRN (09:34)
[2016-09-05] MEDS ORDERED: FURO40TA PO (10:30)
[2016-09-05] MEDS ORDERED: POTA10TA15 PO (10:30)
[2016-09-05] MEDS ORDERED: CEPH-459 PO (10:44)
[2016-09-05] MEDS ORDERED: BISACODYL 10 MG SUPP RECTAL ONE (11:00)
[2016-09-05] MEDS ORDERED: POTASSIUM CHLORIDE 20 MEQ CONTROLLED RELEASE TAB PO ONE (11:00)
--- NOTE | 2016-09-05 12:06 | HHI.DS ---
Discharge Summary Admission Date August 29, 2016 at 05:31 Discharge Date: September 05, 2016 Admitting Diagnosis severe LV dysfunction cardiomyopathy malfunctioning epicardial lead (1) CHF (congestive heart failure), NYHA class III Diagnosis: Principal (2) Hypoxemia Diagnosis: Secondary (3) DM (diabetes mellitus) Diagnosis: Principal (4) Acute kidney injury Diagnosis: Secondary (5) s/p epicardial lead placement Diagnosis: Principal Procedures 1. Left Lateral Mini-Thoracotomy 08/29 2. Epicardial Left Ventricular Lead Placement 3. Removal of Coronary Sinus Lead 4. Removal and Replacement of BiVentricular Pacemaker-AICD Generator Device Brief History 66/ female hx of 1. Cardiomyopathy , CHF, Diabetes Mellitus, Malfunctioning Coronary Sinus Lead, Severe Left Ventricular Dysfunction surgery : Left Lateral Mini-Thoracotomy, Epicardial Left Ventricular Lead Placement, Removal of Coronary Sinus Lead, Removal and Replacement of BiVentricular Pacemaker-AICD Generator Device 08/29 CBC/BMP: 09/05/16 0600 09/05/16 0600 Significant Findings Laboratory Tests Test 09/02/16 09/03/16 09/03/16 09/04/16 19:55 04:00 16:00 04:30 Chloride Level 94 MEQ/L 97 MEQ/L (98-107) (98-107) Carbon Dioxide Level 37.1 MEQ/L 35.9 MEQ/L 34.0 MEQ/L (21.0-32.0) (21.0-32.0) (21.0-32.0) Blood Urea Nitrogen 30 MG/DL (7-18) 30 MG/DL (7-18) 29 MG/DL (7-18) 36 MG/DL (7- 18) Creatinine 1.42 MG/DL 1.39 MG/DL 1.45 MG/DL 1.47 MG/DL (0.50-1.00) (0.50-1.00) (0.50-1.00) (0.50-1.00) Estimat Glomerular Filtration 45 ML/MIN (>89) 46 ML/MIN (>89) 43 ML/MIN (>89) 43 ML/MIN (>89) Rate Random Glucose 158 MG/DL 125 MG/DL 173 MG/DL 141 MG/DL (74-106) (74-106) (74-106) (74-106) Hemoglobin 11.5 GM/DL (11.6-15.3) Mean Corpuscular Hemoglobin 26.9 PG (27.0-34.0) Mean Corpuscular Hemoglobin 31.5 % Concent (32.0-36.0) Test 09/05/16 06:00 Mean Corpuscular Hemoglobin 26.5 PG (27.0-34.0) Mean Corpuscular Hemoglobin 31.4 % Concent (32.0-36.0) Blood Urea Nitrogen 40 MG/DL (7-18) Creatinine 1.44 MG/DL (0.50-1.00) Estimat Glomerular Filtration 44 ML/MIN (>89) Rate Random Glucose 139 MG/DL (74-106) Imaging Last Impressions Renal Ultrasound 09/01/16 0000 Signed Impressions: Service Date/Time: Thursday, September 01, 2016 14:50 - CONCLUSION: Limited exam but some body habitus. There is no obstruction. Renal size is appropriate. Petey Awan MD FACR Chest X-Ray 08/31/16 0600 Signed Impressions: Service Date/Time: Wednesday, August 31, 2016 05:20 - CONCLUSION: Worsening bibasilar consolidation and effusions, could be related to failure. Alfred Crain MD PE at Discharge GENERAL: SKIN: Warm and dry.incision intact left upper and lower chest / pacer insitu left upper chest HEAD: Normocephalic. EYES: No scleral icterus. No injection or drainage. NECK: Supple, trachea midline. No JVD or lymphadenopathy. CARDIOVASCULAR: Regular rate and rhythm without murmurs, gallops, or rubs. RESPIRATORY: diminished n bases, otherwise CTA Breath sounds equal bilaterally. No accessory muscle use. GASTROINTESTINAL: Abdomen soft, non-tender, nondistended. MUSCULOSKELETAL: No cyanosis, or edema. BACK: Nontender without obvious deformity. No CVA tenderness. Hospital Course 6/ female hx of 1. Cardiomyopathy , CHF, Diabetes Mellitus, Malfunctioning Coronary Sinus Lead, Severe Left Ventricular Dysfunction surgery : Left Lateral Mini-Thoracotomy, Epicardial Left Ventricular Lead Placement, Removal of Coronary Sinus Lead, Removal and Replacement of BiVentricular Pacemaker-AICD Generator Device 08/29 08/30 chest tube removed without difficulty pt has low sat mid 80's when off 02 + walk test, will need to be dc on Home 02 eval labs today 09/01/16 Improved on milrinone infusion tx. No complaints. 08/31 pt had episode of hypotension again this am all meds held , bolused with 250cc/ NS worsening renal indices / will need nephro consult also re-consult Dr Aviles CXR and BMP noted, volume overload / HX CHF needs aggressive pulm toileting / diuresis ( will leave to nephro/ non - oliguric ) Postoperatively, the patient has developed worsening shortness of breath and has gained almost 10 pounds over the last 3 days, despite aggressive diuresis. Also during this time, her creatinine has risen from a baseline of approximately 1.2 up to 2.9 this morning. Pt was transferred to ICU for higher level of care and increased cardiac monitoring to assist in optimizing the patient, since she is clearly failing her current CHF regimen, and is decompensating despite her attempts at optimization. pt endorses worsening shortness of breath, particularly orthopnea. denies chest pain. denies any other related symptoms. [place] Norma catheter was placed RAP 20, RV 58/7, PA 47/ 28 (35), PCWP 34, art 129/82 (98), HR 91, CO 3.6 LPM, CI 1.5, SVR 1744, SV 39 mL 09/01: subjectively she feels much better. almost 5L overnight. RHC numbers today : HR 98, art 118/68 (82), RAP 5, PAP 45/14 (26), PCWP 12, CO 6 LPM, CI 2.6, SVR 1017, SV 62 mL. Creatinine improved significantly. 09/02: continues to improve subjectively. still on 5L o2 by nc. net -6.7 L/24h and despite this, filling pressures continue to rise as we re-mobilize her extravascular fluid. Cr continues to downtrend. RHC numbers today: HR 98, art 114/69 (88), RAP 4, PAP 40/12 (24), PCWP 21, CO 4.5 LPM, CI 1.9, SVR 1476, SV 46 mL. 09/03: continues to have excellent diuresis. Cr bumped slightly. appears very close to dry weight. o2 down to 2L NC. RHC numbers today: HR 93, art 108/68 (88), RAP 7, PAP 41/18 (27), PCWP 13, CO 3.2 LPM, CI 1.4, SVR 1863, SV 34. Dry weight: 99 kg 09/04 pt now on 1 liter 02, has diuresed well , pt at ideal weight will dc cordis / swan norma cath already removed dc cui cath transfer to stepdown, consult pt CM to [facility] for home health care, repeat home walk test in am creatinine 1.47/ on fluid restriction 09/05 now on room air discussed with Dr Aviles and his [employer], will dc today continue entresto , spironolactone , lasix will dc home 02 Pt Condition on Discharge: Good Discharge Disposition: Disch w/ Home Health Serv Discharge Instructions DIET: Follow Instructions for: Heart Healthy Diet, Low Sodium Diet Fluid Restrictions: 1500cc / 1.5L Activities you can perform: Shower Only-No Bath Activities to avoid: Strenuous Activity, Driving Additional Activity Instructio: no lifting > 8 lbs ior gallon of milk Follow up Referrals: Cardiology @ [facility] with Marko Aviles MD Internal Medicine with Melissa Granados M.d. Surgical - 2 Weeks with Irish Lau MD New Orders: BASIC METABOLIC PROF - 3-5 Days New Medications: Cephalexin (Keflex) 250 Mg Cap 250 MG PO Q8HR Infection #15 Ref 0 CAP Potassium Chloride Microencaps (Potassium Chloride Microencaps) 10 Meq Tab 10 MEQ PO DAILY Electrolyte Replacement #30 Ref 0 TAB Furosemide (Furosemide) 40 Mg Tab 40 MG PO BID@09,18 CHF #60 TAB Continued Medications: Aspirin (Aspirin) 81 Mg Tabdr 81 MG PO DAILY TAB Atorvastatin (Atorvastatin) 20 Mg Tab 20 MG PO HS Cholesterol Management #30 Ref 0 TAB Carvedilol (Coreg) 3.125 Mg Tab 3.125 MG PO BID #60 Ref 0 TAB Insulin Human NPH Inj (Novolin N Inj) 1,000 Unit/10 Ml Vial 10 UNITS SQ BID Blood Sugar Management #10 Ref 0 ML Insulin Human Regular Inj (Novolin R Inj) 1,000 Unit/10 Ml Vial 4 UNITS SQ QID Blood Sugar Management #1 Ref 0 INJECTION Sacubitril-Valsartan (Entresto) 24-26 Mg Tab 1 TAB PO BID Heart Failure #30 Ref 0 TAB Spironolactone (Spironolactone) 25 Mg Tab 25 MG PO DAILY #30 Ref 0 TAB Discontinued Medications: Furosemide (Furosemide) 20 Mg Tab 20 MG PO DAILY #30 Ref 0 TAB Nicole Avendaño September 05, 2016 12:06
[2016-09-05] MEDS ORDERED: CEPHALEXIN MONOHYDRATE 250 MG CAP PO SCH (14:00)
== END 2016-09-05 14:33 | disposition home health service (06) | DRG 245 ==
LOC: HSDI 08-29 05:31 → HCIN 08-29 12:45 → HCVR 08-31 17:10 → HCIN 09-04 10:53
PROVIDERS: ADMIT Thoracic Surgery (Cardiothoracic Vascular Surgery); ATTEND Thoracic Surgery (Cardiothoracic Vascular Surgery)
PROC: 02PA0MZ Removal of Cardiac Lead from Heart, Open Approach (ICD-10-PCS; 2016-08-29)
PROC: 0JPT0PZ Removal of Cardiac Rhythm Related Device from Trunk Subcutaneous Tissue and Fascia, Open Approach (ICD-10-PCS; 2016-08-29)
PROC: 02H Heart and Great Vessels, Insertion (ICD-10-PCS; principal; 2016-08-29 07:32)
PROC: 0JH608Z Insertion of Defibrillator Generator into Chest Subcutaneous Tissue and Fascia, Open Approach (ICD-10-PCS; 2016-08-29 07:32)
PROC: 02H633Z Insertion of Infusion Device into Right Atrium, Percutaneous Approach (ICD-10-PCS; 2016-08-31)
PROC: 4A023N6 Measurement of Cardiac Sampling and Pressure, Right Heart, Percutaneous Approach (ICD-10-PCS; 2016-08-31)
DX: T82.190A Other mechanical complication of cardiac electrode, initial encounter (principal); I50.23 Acute on chronic systolic (congestive) heart failure; N17.9 Acute kidney failure, unspecified; E87.3 Alkalosis; I42.9 Cardiomyopathy, unspecified; I13.0 Hypertensive heart and chronic kidney disease with heart failure and stage 1 through stage 4 chronic kidney disease, or unspecified chronic kidney disease; R09.02 Hypoxemia; Y83.1 Surgical operation with implant of artificial internal device as the cause of abnormal reaction of the patient, or of later complication, without mention of misadventure at the time of the procedure; E86.1 Hypovolemia; E11.22 Type 2 diabetes mellitus with diabetic chronic kidney disease; N18.3 Chronic kidney disease, stage 3 (moderate); I95.81 Postprocedural hypotension
CPT/HCPCS: 36415; 71010; 76775; 76937; 80048; 81001; 82043; 82948; 83735; 83880; 85025; 85027; 85610; 85730; 86850; 86900; 86901; 87070; 87086; 87205; 93308; 94150; 94620; 94640; 94664; 94667; 94668; C1769; C1882; C1896; C9290; J0131; J0690; J1120; J1650; J1815; J1885; J2250; J2260; J2270; J2370; J2405; J3010; J3475; J3480; J7050; J7120; J7613; P9047

== ENCOUNTER → 2016-08-27 | Outpatient (CLI) | payer OTHER ==
[~2016-08-27] MED LIST: ASPI1TAB69 PO; ASPI325T PO; ATOR20TA15 PO; ATOR20TA42 PO; CARV3.125 PO; CEPH-459 PO; CLOP75 PO; FURO20TA PO; FURO40TA PO; LISI10TA PO; NOVONP2 SQ; NOVORP2 SQ; OXYGENTANK NAS.CANULA; POTA10TA15 PO; SACU1TAB PO; SPIR25TA PO; fentaNYL CITRATE 250 MCG/5 ML AMP ONE
[2016-08-27 11:00] LABS: MEAN CELL VOLUME 85.7 FL (80.0-100.0); MEAN CORPUSCULAR HEMOGLOBIN 26.5 PG (27.0-34.0); MEAN CORPUSCULAR HGB CONC 30.9 % (32.0-36.0); PLATELET COUNT 149 TH/MM3 (150-450); RED BLOOD COUNT 4.44 MIL/MM3 (4.00-5.30); RED CELL DISTRIBUTION WIDTH 17.1 % (11.6-17.2); REVIEW FLAG FINAL; WHITE BLOOD COUNT 4.1 TH/MM3 (4.0-11.0)
[2016-08-27 11:20] LABS: BLOOD, URINE TRACE (NEG); COMMENT (UR) CULT NOT INDICATED; CULTURE IF INDICATED CULT NOT INDICATED; GLUCOSE,URINE NEG (NEG); HYALINE CAST, URINE 1 /lpf (RARE); KETONE, URINE NEG (NEG); MUCUS URINE FEW /lpf (OCC); NITRITE,URINE NEG (NEG); SQUAMOUS EPITHELIAL CELL URINE 2 /hpf (0-5); URINE COLOR LIGHT-YELLOW (YELLW/STRAW)
[2016-08-27 11:26] LABS: BICARBONATE 28.9 MEQ/L (21.0-32.0); POTASSIUM 4.4 MEQ/L (3.5-5.1)
[2016-08-27 11:28] LABS: APTT (PATIENT) 24.6 SEC (24.3-30.1); PROTHROMBIN TIME - PATIENT 11.4 SEC (9.8-11.6)
== END ==
LOC: CPRE 10:17
PROVIDERS: ATTEND Thoracic Surgery (Cardiothoracic Vascular Surgery)
DX: Z01.812 Encounter for preprocedural laboratory examination (principal); I42.9 Cardiomyopathy, unspecified
CPT/HCPCS: 36415; 80048; 81001; 85027; 85610; 85730; 86850; 86900; 86901